=== PATIENT | male | born 1965 | race Caucasian/White ===

== ENCOUNTER 2020-09-17 06:19 | Outpatient (REF) | payer OTHER, SELFPAY ==
[2020-09-17 11:03] LABS: MANUAL DIFF FLAG NO
[2020-09-17 11:07] LABS: Basophils Absolute Auto 0.1 X10*3/uL (0.0-0.2); Eosinophils Absolute Auto 0.2 X10*3/uL (0.0-0.4); Hematocrit 50.3 % (42-52); Hemoglobin 17.3 g/dl (14.0-18.0); Imm Gran Abs Auto 0.02 X10*3/uL (0.00-0.03); Imm Gran Pct Auto 0.3 % (0.0-0.4); Lymphocytes Absolute Auto 1.8 X10*3/uL (1.2-4.9); Lymphocytes Percent Auto 31.1 % (20-40); Mean Corpuscular HGB Conc 34.4 g/dl (31.0-36.0); Mean Corpuscular Hemoglobin 30.5 pg (27.0-33.0); Mean Corpuscular Volume 88.7 fL (80-98); Mean Platelet Volume 10.1 fL (9.4-12.4); Monocytes Absolute Auto 0.5 X10*3/uL (0.1-1.2); Monocytes Percent Auto 9.4 % (2-11); Neutrophils Absolute Auto 3.2 X10*3/uL (2.0-8.3); Neutrophils Percent Auto 55.2 % (45-73); Platelet Count 321 X10*3/uL (160-400); Red Blood Count 5.67 X10*6/uL (4.60-5.80); Red Cell Distribution Width 12.2 % (11.0-16.0); White Blood Count 5.7 X10*3/uL (4.8-10.8)
[2020-09-17 11:58] LABS: Alanine Aminotransferase 44 U/L (0-40); Albumin Level 4.6 g/dL (3.5-5.0); Alkaline Phosphatase 66 U/L (39-117); Anion Gap 16 (12-20); Aspartate Amino Transferase 30 U/L (5-37); Bilirubin Total 1.1 mg/dL (0.0-1.0); Blood Urea Nitrogen 17 mg/dL (9-16); Calcium 9.2 mg/dL (8.4-10.2); Carbon Dioxide 23 mmol/L (22-29); Chloride 107 mmol/L (96-108); Cholesterol 248 mg/dL; Estimated Glomerular Filt Rate > 60; Glucose Fasting 89 mg/dL (60-99); HDL Cholesterol 50 mg/dL; LDL Cholesterol Calculated 178 mg/dl; Potassium 4.2 mmol/L (3.3-5.1); Sodium 142 mmol/L (135-145); Triglycerides 103 mg/dL
== END 2020-09-17 06:20 | disposition home or self-care (01) ==
LOC: HO.HMGCLDS 06:19
PROVIDERS: PCP Internal Medicine Medical Oncology; Visit Provider Internal Medicine Medical Oncology
DX: I10 Essential (primary) hypertension (principal); E78.5 Hyperlipidemia, unspecified; E66.3 Overweight
CPT/HCPCS: 36415; 80053; 80061; 85025

== ENCOUNTER 2020-10-07 08:48 | Outpatient (REF) | payer OTHER, SELFPAY ==
--- NOTE | ~2020-10-07 | US_ITS ---
EXAMINATION: US ABDOMEN COMPLETE CLINICAL INFORMATION: Abdominal pain. COMPARISON: Renal ultrasound 01/16/2015. CT abdomen and pelvis 12/13/2010. Ultrasound abdomen 11/29/2010. TECHNIQUE: Real-time imaging of the abdominal viscera. FINDINGS: PANCREAS: Normal. ABDOMINAL AORTA: The proximal, mid, and distal segments are normal in caliber. INFERIOR VENA CAVA: Visualized portions are normal. LIVER: The liver is normal in size. The liver contour is normal. Parenchymal echogenicity is normal. There is an echogenic lesion right hepatic lobe measuring 0.9 x 0.9 x 0.8 cm, likely hemangioma. There is no intrahepatic biliary duct dilatation seen. GALLBLADDER: Normal. The gallbladder is physiologically distended without evidence of stones, sludge, polyps, wall thickening or pericholecystic fluid. COMMON BILE DUCT: Normal in caliber measuring 0.4 cm in diameter. RIGHT KIDNEY: Normal. No hydronephrosis. No renal calculi or focal parenchymal lesions. The kidney measures 10.8 cm in maximum dimension. LEFT KIDNEY: Normal. No hydronephrosis. No renal calculi or focal parenchymal lesions. The kidney measures 11.2 cm in maximum dimension. SPLEEN: Slightly lobulated splenic contour. The spleen measures 10.9 cm in maximum dimension. Small splenule is seen in the stella measuring 1.7 x 1.8 x 1.9 cm. FREE FLUID: None. US/US abdomen complete IMPRESSION: Right hepatic lobe hemangioma. The rest of the abdominal ultrasound is unremarkable.
== END 2020-10-07 08:49 | disposition home or self-care (01) ==
LOC: HO.US 08:48
PROVIDERS: PCP Internal Medicine Medical Oncology; Visit Provider Internal Medicine Medical Oncology
DX: R10.9 Unspecified abdominal pain (principal)
CPT/HCPCS: 76700

== ENCOUNTER 2020-12-31 07:15 | Outpatient (REF) | payer BC, SELFPAY ==
[2020-12-31 11:45] LABS: MANUAL DIFF FLAG NO
[2020-12-31 12:06] LABS: Basophils Absolute Auto 0.1 X10*3/uL (0.0-0.2); Basophils Percent Auto 0.8 % (0-2); Eosinophils Absolute Auto 0.1 X10*3/uL (0.0-0.4); Hematocrit 48.1 % (42-52); Hemoglobin 16.5 g/dl (14.0-18.0); Imm Gran Abs Auto 0.03 X10*3/uL (0.00-0.03); Imm Gran Pct Auto 0.5 % (0.0-0.4); Lymphocytes Absolute Auto 1.6 X10*3/uL (1.2-4.9); Lymphocytes Percent Auto 26.7 % (20-40); Mean Corpuscular HGB Conc 34.3 g/dl (31.0-36.0); Mean Corpuscular Hemoglobin 30.5 pg (27.0-33.0); Mean Corpuscular Volume 88.9 fL (80-98); Mean Platelet Volume 9.8 fL (9.4-12.4); Monocytes Absolute Auto 0.7 X10*3/uL (0.1-1.2); Monocytes Percent Auto 11.1 % (2-11); Neutrophils Absolute Auto 3.5 X10*3/uL (2.0-8.3); Neutrophils Percent Auto 58.9 % (45-73); Platelet Count 290 X10*3/uL (160-400); Red Blood Count 5.41 X10*6/uL (4.60-5.80); Red Cell Distribution Width 12.5 % (11.0-16.0)
[2020-12-31 12:51] LABS: Alanine Aminotransferase 40 U/L (0-40); Albumin Level 4.4 g/dL (3.5-5.0); Alkaline Phosphatase 58 U/L (39-117); Anion Gap 14 (12-20); Aspartate Amino Transferase 28 U/L (5-37); Bilirubin Total 1.6 mg/dL (0.0-1.0); Blood Urea Nitrogen 22 mg/dL (9-16); Calcium 9.8 mg/dL (8.4-10.2); Carbon Dioxide 25 mmol/L (22-29); Chloride 106 mmol/L (96-108); Cholesterol 232 mg/dL; Estimated Glomerular Filt Rate 58; Glucose Fasting 90 mg/dL (60-99); HDL Cholesterol 54 mg/dL; LDL Cholesterol Calculated 152 mg/dl; Potassium 4.3 mmol/L (3.3-5.1); Sodium 141 mmol/L (135-145); Total Protein 6.8 g/dL (6.5-8.0); Triglycerides 133 mg/dL
== END 2020-12-31 07:16 | disposition home or self-care (01) ==
LOC: HO.HMGCLDS 07:15
PROVIDERS: PCP Internal Medicine Medical Oncology; Visit Provider Internal Medicine Medical Oncology
DX: I10 Essential (primary) hypertension (principal); E78.5 Hyperlipidemia, unspecified; E66.3 Overweight
CPT/HCPCS: 36415; 80053; 80061; 85025

== ENCOUNTER 2021-05-24 07:15 | Outpatient (REF) | payer BC, SELFPAY ==
[2021-05-24 11:27] LABS: MANUAL DIFF FLAG NO
[2021-05-24 11:38] LABS: Basophils Absolute Auto 0.1 X10*3/uL (0.0-0.2); Eosinophils Absolute Auto 0.1 X10*3/uL (0.0-0.4); Eosinophils Percent Auto 2.5 % (0-4); Hematocrit 47.7 % (42-52); Hemoglobin 16.6 g/dl (14.0-18.0); Imm Gran Abs Auto 0.02 X10*3/uL (0.00-0.03); Imm Gran Pct Auto 0.4 % (0.0-0.4); Lymphocytes Absolute Auto 1.6 X10*3/uL (1.2-4.9); Lymphocytes Percent Auto 31.2 % (20-40); Mean Corpuscular HGB Conc 34.8 g/dl (31.0-36.0); Mean Corpuscular Hemoglobin 30.6 pg (27.0-33.0); Mean Platelet Volume 10.1 fL (9.4-12.4); Monocytes Absolute Auto 0.6 X10*3/uL (0.1-1.2); Monocytes Percent Auto 10.9 % (2-11); Neutrophils Absolute Auto 2.8 X10*3/uL (2.0-8.3); Platelet Count 314 X10*3/uL (160-400); Red Blood Count 5.42 X10*6/uL (4.60-5.80); Red Cell Distribution Width 12.3 % (11.0-16.0); White Blood Count 5.2 X10*3/uL (4.8-10.8)
[2021-05-24 12:13] LABS: Alanine Aminotransferase 47 U/L (0-40); Albumin Level 4.5 g/dL (3.5-5.0); Alkaline Phosphatase 63 U/L (39-117); Anion Gap 14 (12-20); Aspartate Amino Transferase 30 U/L (5-37); Bilirubin Total 1.3 mg/dL (0.0-1.0); Blood Urea Nitrogen 18 mg/dL (9-16); Calcium 9.7 mg/dL (8.4-10.2); Carbon Dioxide 23 mmol/L (22-29); Chloride 106 mmol/L (96-108); Cholesterol 212 mg/dL; Estimated Glomerular Filt Rate > 60; Glucose Fasting 88 mg/dL (60-99); HDL Cholesterol 43 mg/dL; LDL Cholesterol Calculated 135 mg/dl; Potassium 4.3 mmol/L (3.3-5.1); Sodium 139 mmol/L (135-145); Total Protein 6.9 g/dL (6.5-8.0); Triglycerides 174 mg/dL
== END 2021-05-24 07:16 | disposition home or self-care (01) ==
LOC: HO.HMGCLDS 07:15
PROVIDERS: PCP Internal Medicine Medical Oncology; Visit Provider Internal Medicine Medical Oncology
DX: E78.5 Hyperlipidemia, unspecified (principal); I10 Essential (primary) hypertension
CPT/HCPCS: 36415; 80053; 80061; 85025

== ENCOUNTER 2021-07-22 11:49 | Outpatient (REF) | payer BC, SELFPAY ==
--- NOTE | ~2021-07-22 | XR_ITS ---
EXAMINATION: XR CHEST CLINICAL INFORMATION: Chest pain, hypertension. COMPARISON: Chest radiograph on January 05, 2015 TECHNIQUE: 2 views of the chest were obtained. FINDINGS: The cardiomediastinal and hilar contours are within normal limits. The lungs are clear without focal consolidation, pleural effusion or pneumothorax. XR/XR chest 2V IMPRESSION: No acute process identified.
== END 2021-07-22 11:50 | disposition home or self-care (01) ==
LOC: HO.XRAY 11:49
PROVIDERS: PCP Internal Medicine Medical Oncology; Visit Provider Internal Medicine Medical Oncology
DX: R07.9 Chest pain, unspecified (principal); I10 Essential (primary) hypertension
CPT/HCPCS: 71046

== ENCOUNTER → 2021-07-26 09:42 | Outpatient (REF) | payer BC, SELFPAY ==
--- NOTE | 2021-07-26 09:46 | CA_ITS ---
Acquisition Time: 2021-07-26 11:03:21 Total Exercise Time: 00:07:31 Test Indications: CP Medications: SEE CHART Protocol: SORIN Max HR: 153 BPM 94% of Pred: 162 BPM Max BP: 215/092 mmHG Max Work Load: 9.3 METS Exercise stress test with exercise 7 min 31 sec of Sorin protocol, achieving 9.4 MET, 94% MPHR, with 2/10 heaviness in his chest with tingling in left arm at baseline which did not change during exercise then in recovery he reported heaviness was up to 3/10, with isolated PACs, PVCs and one 4 beat atrial run in recovery, with hypertensive response to exercise with max BP 215/92, without EKG changes meeting criteria for ischemia. In recovery his BP returned to near baseline. Test reviewed with Dr Berrios. Referred By: Jus Rapp Overread By: NICOLE DUPONT
== END ==
LOC: HO.CARD 09:42
PROVIDERS: PCP Internal Medicine Medical Oncology; Visit Provider Internal Medicine Medical Oncology
DX: R07.9 Chest pain, unspecified (principal); I10 Essential (primary) hypertension
CPT/HCPCS: 93017

== ENCOUNTER 2022-09-08 06:11 | Outpatient (REF) | payer OTHER, SELFPAY ==
[2022-09-08 11:22] LABS: MANUAL DIFF FLAG NO
[2022-09-08 11:34] LABS: Basophils Absolute Auto 0.1 X10*3/uL (0.0-0.2); Basophils Percent Auto 1.5 % (0-2); Eosinophils Absolute Auto 0.4 X10*3/uL (0.0-0.4); Eosinophils Percent Auto 6.6 % (0-4); Hematocrit 46.6 % (42.0-52.0); Hemoglobin 16.5 g/dl (14.0-18.0); Imm Gran Abs Auto 0.03 X10*3/uL (0.00-0.03); Imm Gran Pct Auto 0.5 % (0.0-0.4); Lymphocytes Absolute Auto 1.6 X10*3/uL (1.2-4.9); Lymphocytes Percent Auto 26.5 % (20-40); Mean Corpuscular HGB Conc 35.4 g/dl (31.0-36.0); Mean Corpuscular Hemoglobin 30.8 pg (27.0-33.0); Mean Corpuscular Volume 87.1 fL (80.0-98.0); Mean Platelet Volume 10.3 fL (9.4-12.4); Monocytes Absolute Auto 0.5 X10*3/uL (0.1-1.2); Monocytes Percent Auto 8.7 % (2-11); Neutrophils Absolute Auto 3.4 x10*3/uL (2.0-8.3); Neutrophils Percent Auto 56.2 % (45-73); Platelet Count 292 X10*3/uL (160-400); Red Blood Count 5.35 X10*6/uL (4.60-5.80); Red Cell Distribution Width 12.2 % (11.0-16.0); White Blood Count 6.1 X10*3/uL (4.8-10.8)
[2022-09-08 12:18] LABS: Alanine Aminotransferase 37 U/L (0-40); Albumin Level 4.3 g/dL (3.5-5.0); Alkaline Phosphatase 65 U/L (39-117); Anion Gap 14 (12-20); Aspartate Amino Transferase 24 U/L (5-37); Bilirubin Total 1.1 mg/dL (0.0-1.0); Blood Urea Nitrogen 19 mg/dL (9-16); Calcium 9.6 mg/dL (8.4-10.2); Carbon Dioxide 23 mmol/L (22-29); Chloride 110 mmol/L (96-108); Cholesterol 228 mg/dL; Estimated Glomerular Filt Rate > 60; Glucose Fasting 100 mg/dL (60-99); HDL Cholesterol 47 mg/dL; LDL Cholesterol Calculated 152 mg/dl; Potassium 4.1 mmol/L (3.3-5.1); Prostate Specific Antigen 0.31 ng/mL (<0.05-4.0); Sodium 143 mmol/L (135-145); Total Protein 6.5 g/dL (6.5-8.0); Triglycerides 147 mg/dL
== END 2022-09-08 06:12 | disposition home or self-care (01) ==
LOC: HO.HMGCLDS 06:11
PROVIDERS: PCP Internal Medicine Medical Oncology; Visit Provider Internal Medicine Medical Oncology
DX: Z12.5 Encounter for screening for malignant neoplasm of prostate (principal); I10 Essential (primary) hypertension; E78.5 Hyperlipidemia, unspecified; E66.3 Overweight; N40.0 Benign prostatic hyperplasia without lower urinary tract symptoms
CPT/HCPCS: 36415; 80053; 80061; 84153; 85025

== ENCOUNTER 2023-11-15 06:16 | Outpatient (REF) | payer BC, SELFPAY ==
[2023-11-15 10:22] LABS: MANUAL DIFF FLAG NO
[2023-11-15 10:33] LABS: Basophils Absolute Auto 0.1 X10*3/uL (0.0-0.2); Basophils Percent Auto 0.9 % (0-2); Eosinophils Absolute Auto 0.2 X10*3/uL (0.0-0.4); Hematocrit 47.5 % (42.0-52.0); Hemoglobin 16.5 g/dl (14.0-18.0); Imm Gran Abs Auto 0.02 X10*3/uL (0.00-0.03); Imm Gran Pct Auto 0.4 % (0.0-0.4); Lymphocytes Absolute Auto 1.7 X10*3/uL (1.2-4.9); Lymphocytes Percent Auto 30.9 % (20-40); Mean Corpuscular HGB Conc 34.7 g/dl (31.0-36.0); Mean Corpuscular Hemoglobin 30.5 pg (27.0-33.0); Mean Corpuscular Volume 87.8 fL (80.0-98.0); Monocytes Absolute Auto 0.6 X10*3/uL (0.1-1.2); Monocytes Percent Auto 10.4 % (2-11); Neutrophils Percent Auto 53.4 % (45-73); Platelet Count 304 X10*3/uL (160-400); Red Blood Count 5.41 X10*6/uL (4.60-5.80); Red Cell Distribution Width 12.2 % (11.0-16.0); White Blood Count 5.6 X10*3/uL (4.8-10.8)
[2023-11-15 10:52] LABS: Alanine Aminotransferase 30 U/L (0-40); Albumin Level 4.3 g/dL (3.5-5.0); Alkaline Phosphatase 59 U/L (39-117); Anion Gap 12 (12-20); Aspartate Amino Transferase 25 U/L (5-37); Bilirubin Total 1.1 mg/dL (0.0-1.0); Blood Urea Nitrogen 18 mg/dL (9-16); Calcium 9.8 mg/dL (8.4-10.2); Carbon Dioxide 24 mmol/L (22-29); Chloride 108 mmol/L (96-108); Cholesterol 207 mg/dL (<200); Estimated Glomerular Filt Rate > 60; Glucose Fasting 99 mg/dL (60-99); HDL Cholesterol 47 mg/dL (>40); LDL Cholesterol Calculated 140 mg/dL (<100); Potassium 3.8 mmol/L (3.3-5.1); Sodium 140 mmol/L (135-145); Total Protein 6.9 g/dL (6.5-8.0); Triglycerides 102 mg/dL (<150)
[2023-11-15 11:05] LABS: Prostate Specific Antigen 0.29 ng/mL (<0.05-4.0)
== END 2023-11-15 06:17 | disposition home or self-care (01) ==
LOC: HO.HMGCLDS 06:16
PROVIDERS: PCP Internal Medicine Medical Oncology; Visit Provider Internal Medicine Medical Oncology
DX: Z12.5 Encounter for screening for malignant neoplasm of prostate (principal); E78.5 Hyperlipidemia, unspecified; E66.3 Overweight; I10 Essential (primary) hypertension; N40.0 Benign prostatic hyperplasia without lower urinary tract symptoms
CPT/HCPCS: 36415; 80053; 80061; 84153; 85025

== ENCOUNTER 2024-01-16 06:27 | Day surgery (SDC) | payer BC, SELFPAY ==
[2024-01-12 11:45] VITALS: BMI 30.1
--- NOTE | 2024-01-15 09:46 | HO.ANESPROP2 ---
Documented by User: Vanessa Lawson NP 01/15/24 09:46 HPI - Anesthesia Eval Consult details Narrative: 58yo M for Upper Endoscopy and Colonoscopy [facility] Past Medical History Medical History Insomnia GERD (gastroesophageal reflux disease) Depression Surgical History Surgical History Hx of hernia repair H/O colonoscopy Social History Social History (Updated 01/12/24 @ 11:45 by Ann Marie Mcpherson RN) Household Members: Spouse Patient Tobacco Use Status: Former Tobacco user Substance Use Frequency: Occasionally Are you DNR?: No Advance Directives: No Advance Directives Information Provided: Yes Nutrition Risks: No Nutritional Risk Meds Allergies Allergy/AdvReac Type Severity Reaction Status Date / Time No Known Allergies Allergy Verified 01/16/24 07:08 Home Medications ?Medication ?Instructions ?Recorded ?Confirmed ?Last Taken ?Type Lactobacillus acidophilus and 1 cap PO DAILY 01/12/24 01/12/24 Unknown History rhamnosus 15 billion cell capsule (Probiotic) aspirin 81 mg tablet,delayed 81 mg PO DAILY 01/12/24 01/12/24 01/09/24 History release magnesium oxide 400 mg PO DAILY 01/12/24 01/12/24 Unknown History mirtazapine 15 mg tablet 15 mg PO BEDTIME 01/12/24 01/12/24 Unknown History multivitamin 1 tab PO DAILY 01/12/24 01/12/24 Unknown History omeprazole magnesium 20 mg 20 mg PO DAILY 01/12/24 01/12/24 Unknown History tablet,delayed release (Prilosec OTC) Exam Height,Weight and Vital Signs: Height 5 ft 11 in Weight 97.976 kg Assessment and Plan Assessment Anesthesia Assessment: Chart Reviewed Documented by User: Pacheco Garcia MD 01/16/24 07:18 [facility] Past Medical History Medical History Insomnia GERD (gastroesophageal reflux disease) Depression Family History Family history of problems with anesthesia: No Surgical History Surgical History Hx of hernia repair H/O colonoscopy History of Problems with Anesthesia: No Social History Social History (Updated 01/12/24 @ 11:45 by Ann Marie Mcpherson RN) Household Members: Spouse Patient Tobacco Use Status: Former Tobacco user Substance Use Frequency: Occasionally Are you DNR?: No Advance Directives: No Advance Directives Information Provided: Yes Nutrition Risks: No Nutritional Risk Meds Allergies Allergy/AdvReac Type Severity Reaction Status Date / Time No Known Allergies Allergy Verified 01/16/24 07:08 Home Medications ?Medication ?Instructions ?Recorded ?Confirmed ?Last Taken ?Type Lactobacillus acidophilus and 1 cap PO DAILY 01/12/24 01/12/24 Unknown History rhamnosus 15 billion cell capsule (Probiotic) aspirin 81 mg tablet,delayed 81 mg PO DAILY 01/12/24 01/12/24 01/09/24 History release magnesium oxide 400 mg PO DAILY 01/12/24 01/12/24 Unknown History mirtazapine 15 mg tablet 15 mg PO BEDTIME 01/12/24 01/12/24 Unknown History multivitamin 1 tab PO DAILY 01/12/24 01/12/24 Unknown History omeprazole magnesium 20 mg 20 mg PO DAILY 01/12/24 01/12/24 Unknown History tablet,delayed release (Prilosec OTC) Exam Airway Mallampati Class: II TM Dist: >3cm Neck ROM: Full Loose/Missing/Broken Teeth: No Heart: ok Lungs: ok Assessment and Plan Assessment Anesthesia Assessment: Anesthesia Plan Discussed Final Anesthetic Review Family History of Problems with Anesthesia: No History of Problems with Anesthesia: No NPO: Yes ASA Class: II Final Preanesthetic Review: No Changes in Pt Med Stat, Meds/Allgs Chart Reviewed, Consent Obtained/Reviewed and Anes Risks/Benef Reviewed Patient Risk: Low Procedure Risk: Low Anesthetic Plan Anesthetic Plan: Agree w/ Assess. and Plan and TIVA Disposition: Standard PACU
[2024-01-16 06:38] VITALS: BMI 29.4
[2024-01-16] MEDS: Lactated Ringers 1,000 ML 100 ML IVCONT (06:43)
[2024-01-16 07:07] VITALS: BP 148/90; PULSE 62; RESP 18; TEMP 36.8; O2SAT 96
--- NOTE | 2024-01-16 07:26 | MHC.SHP ---
Pre-Procedural Eval Section A - 24 Hr Update-Section A only Date of Service: 01/16/24 Section B - Complete if H&P > 30 days Chief Complaint: gerd,screening Details of Present Illness: see H&P no changes Relevant Family History (Specify if Yes): No Relevant Social History: None Present Medications: see Short Stay Collaborative assessment Medical History: No relevant PMH History of Previous Operations: No relevant previous surgery Allergies: Allergies Allergy/AdvReac Type Severity Reaction Status Date / Time No Known Allergies Allergy Verified 01/16/24 07:08 Review of Systems Sugical H&P ROS: Negative: Constitution, Cardiovascular, Respiratory, Neurological, Psychiatric, Hem-Onc, Allergic/Immunologic, Gastrointestinal, Genitourinary, Musculoskeletal, Integumentary, Endocrine and Eyes/Ears/Nose/Throat Exam Surgical H&P Exam: Normal: HEENT, Normal: Heart, Normal: Lungs, Normal: Extremities, Normal: Abdomen, Normal: Skin and Normal: Neurological Plan Diagnosis/Plan: Unchanged I have reviewed the history and physical and performed a pertinent physical examination on my patient. No changes have occurred unless specified. Time Spent With Patient Time: Total time managing care of this patient today ____ minutes.
[2024-01-16 08:16] VITALS: BP 109/77; PULSE 60; RESP 14; TEMP 36.6; O2SAT 94
[2024-01-16 08:31] VITALS: BP 118/78; PULSE 50; RESP 15; O2SAT 93
[2024-01-16 08:46] VITALS: BP 145/95; PULSE 53; RESP 16; TEMP 36.6; O2SAT 96
--- NOTE | 2024-01-16 09:04 | OP_ITS ---
DATE OF SERVICE: 01/16/2024 SURGEON: Jamal Mukherjee MD INDICATIONS: 1. Gastroesophageal reflux disease. 2. Colon cancer screening. PREOPERATIVE DIAGNOSIS: POSTOPERATIVE DIAGNOSIS: PROCEDURE PERFORMED: Upper endoscopy with biopsy, colonoscopy to the terminal ileum with snare polypectomy and biopsy. ESTIMATED BLOOD LOSS: COMPLICATIONS: ANESTHESIA: Monitored anesthesia care. ASSISTANTS: SPECIMENS: DESCRIPTION OF PROCEDURE: A history and physical was performed. The risks and benefits of the procedure were explained to the patient. Informed consent was obtained. The patient was placed in the left lateral decubitus position. The Olympus video gastroscope was introduced into the esophagus, stomach, and duodenum. Examination was performed. The scope was removed. He was repositioned for colonoscopy. A digital rectal exam was performed and was found to be normal. The Olympus pediatric video colonoscope was introduced into the rectum and advanced to the cecum. The cecum was identified by transillumination, palpation, and identification of ileocecal valve. Examination was performed. The scope was removed. He tolerated both procedures well, returned to recovery area in stable condition. FINDINGS: Upper endoscopy: 1. Esophagus: The esophagus was normal. There was no esophagitis. Biopsies were obtained from the EG junction. 2. Stomach: The stomach showed several benign-appearing less than 10 mm polyps in the body and fundus consistent with fundic gland polyps. Two of these were biopsied. Antral biopsies were also obtained to evaluate for H pylori. 3. Duodenum: The bulb and 2nd portion were normal. Colonoscopy: The terminal ileum was examined and appeared normal. The visualized colonic mucosa was normal. The quality of the prep was good. Two polyps were identified and removed. The first measured approximately 6 mm and was removed with a cold snare. This has been treated at 60 cm from the anal verge. The second was located at 25 cm and measured less than 5 mm. This was removed with a biopsy forceps. There was mild right-sided diverticulosis. Retroflexed examination showed small internal hemorrhoids. IMPRESSION: 1. Gastroesophageal reflux disease. 2. Gastric polyps. 3. Colon polyps. RECOMMENDATION: Follow up the biopsy results. MD JENNIFER Dexter/MICHAELLEL / [id number]
== END 2024-01-16 09:05 | disposition home or self-care (01) ==
PROVIDERS: PCP Internal Medicine Medical Oncology; Visit Provider Internal Medicine Gastroenterology
PROC: (CPT 45385; principal; 2024-01-16 07:30)
DX: Z12.11 Encounter for screening for malignant neoplasm of colon (principal); Z86.010 Personal history of colon polyps; Z80.0 Family history of malignant neoplasm of digestive organs; D12.4 Benign neoplasm of descending colon; D12.5 Benign neoplasm of sigmoid colon; K21.9 Gastro-esophageal reflux disease without esophagitis; K31.7 Polyp of stomach and duodenum; F32.A Depression, unspecified; G47.00 Insomnia, unspecified; Z79.899 Other long term (current) drug therapy; Z79.82 Long term (current) use of aspirin; Z98.890 Other specified postprocedural states
CPT/HCPCS: 45385; 45380; 43239; 88305; 88313; 88342; J2250; J2704

== ENCOUNTER → 2024-12-30 15:46 | Outpatient (REF) | payer BC, SELFPAY ==
--- NOTE | 2024-12-30 15:51 | ECG_ITS ---
Test Reason : CP Blood Pressure : */* mmHG Vent. Rate : 66 BPM Atrial Rate : 66 BPM P-R Int : 204 ms QRS Dur : 100 ms QT Int : 422 ms P-R-T Axes : 54 3 31 degrees QTcB Int : 442 ms Normal sinus rhythm mild MA prolongation Otherwise normal ECG When compared with ECG of 11-Apr-2005 08:09, No significant change was found Referred By: Jus Rapp Electronically Signed By: ANGI GARCIA
--- OUTSIDE RECORDS SUMMARY | 2024-12-30 16:53 | XMS_ITS ---
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 Phone Jus Rapp Primary Care Provider [phone] Allergies Allergen (clinical drug ingredient) Drug/Non Drug [...] Date Provider Diagnosis Jus Rapp III, MD [address] [place] [address] [place] [address] 07/22/2024 Jus Rapp Former smoker Z87.89 1 [...] check-up Provider Name:Jus Rapp, 04/01/2025 03:00:00 PM, [address] [place] [address] [address], [place], [address], Provider Name:Jus Rapp, 12/31/2025 03:00:00 PM, [address] [place] [address] [address], [place], [address], Progress Notes * Kristin MCKENZIE:1965 ([age] yo M)Acc No.[id number]:07/22/2024 Progress Notes Patient:?David MCKENZIE Provider:?Jus Rapp MD :1965???Age:59 Y???Sex:Male Ajit e:07/22/2024 Address:[id number] Subjective: * Chief Complaints: * ???HypertensionDepressionHyp erlipidemiaBenign prostatic hypertrophyTendon contracture left hand * HPI: ???COVID-19 Screening:?Questions?Have you had any new onset fever, chills, cough, congestion, sore throat, shortness of breath, muscle aches??No ???:? The patient, a 59-year-old male, reported that [...] run a mile and a half. * ROS:?General/Constitutional:?pain?Knees, otherwise only normal aches and pains.?Chills?denies.?Fatigue?admits.?Fever?denies.?ENT:?Decreased hearing?denies.?Respiratory:?Cough?denies.?Cardiovascular:?Chest pain with exertion?denies.?Dyspnea on exertion?denies.?Shortness of breath?denies.?Gastrointestinal:?Constipation?occasional.?Decreased appetite?due to abdominal pain.?Diarrhea?denies.?Heartburn?denies.?Nausea?denies.?Rectal bleeding?denies.?Vomiting?denies.?Hematology:?bruising?denies.?petechiae?denies.?Swollen glands?none have been noted.?Genitourinary:?Frequent urination?once a night.?Musculoskeletal:?Muscle aches?denies.?Painful joints?denies.?Sciatica?denies.?Weakness?denies.?Skin:?Itching?denies.?Rash?denies.?Skin lesion(s)?denies.?Neurologic:?Difficulty speaking?denies.?Dizziness?denies.?Headache?denies.?Low back pain?denies.?Psychiatric:?Depressed mood?denies.? * Medical History:? * Surgical History:?colonoscop y 2002No history * Hospitalization/Major Diagno stic Procedure:?No history * Family History:?Father: dece ased 72 yrs, colon cancer, lung cancer, hypertension, hyperlipidemia, diagnosed with Hyperlipidemia, Cancer.?Mother: 52 yrs, breast cancer, diagnosed with Cancer.?Siblings: .?2 brother(s) , 2 sister(s) . 1 son(s) , 1 daughter(s) - healthy. .? A sister age 53 of cirrhosis of the liver. His father had a history of colon cancer. * Social History:?Tobacco Use:?Tobacco Use/Smoking?Patient is a?former smoker ?How long has it been since you last smoked??> 10 years ?Additional Findings: Tobacco Non-User?Ex-cigarette smoker ???He was born in [place], [place]. He is to Zenobia and they have several children. He is no longer working at [employer] in [employer]. * Medications:?TakingRemeron 1 5 MG Tablet 1 tablet before bedtime in [...] reviewed and reconciled with the patient * Allergies:?No Known Drug All ergyno[Allergies Verified] Objective: * Vitals:?Ht: 72, Wt: 214, BMI :29.02, BP: 138/80, HR: 66, Temp: 97.3, Wt-k.07. * Examination: ???General Examination: ?GENERAL APPEARANCE:?pleasant, well nourished, well developed, in no acute distress, calm and relaxed, overweight, man.?HEAD:?atraumatic, normocephalic.?EYES:?eomi, perrla, anicteric, conjugate.?EARS:?normal.?NOSE:?septum intact.?ORAL CAVITY:?normal, unremarkable.?NECK/THYROID:?no jugular venous distention, no carotid bruit, thyroid normal.?LYMPH NODES:?no enlarged lymph nodes,spleen normal.?SKIN:?no suspicious lesions, anicteric.?HEART:?no clicks, gallops, murmurs, or rubs, regular rhythm, S1, S2 normal, no s3, or vascular bruits.?LUNGS:?clear to auscultation .?BREASTS:??no masses palpable bilaterally.?ABDOMEN:?bowel sounds normal, no ascites, no organomegaly, no mass, overweight.?RECTAL EXAM:?not examined.?MUSCULOSKELETAL:?extremities unremarkable, no clubbing, cyanosis or edema,, Mild Dupuytren's contracture both hands.?PERIPHERAL PULSES:?normal.?NEUROLOGIC:?alert and oriented, cranial nerves 2-12 grossly intact, deep tendon reflexes 2+ symmetrical, motor strength normal upper and lower extremities, sensory exam intact.?PSYCH:?alert, oriented.? Assessment: * Assessment: 1.?Essential hypertension - I10 (Primary)???Notes :His blood pressure is controlled and no change in his regimen as needed.???2.?Former smoker - Z87.891???Notes :He is highly motivated not to smoke. He has a plan for prevention of relapse in times of worsening depression or illness.???3.?Overweight - E66.3???Notes :He has lost 3 pounds. His body mass index is 29. We discussed a weight reduction strategy in detail today.???4.?Right knee pain - M25.561???Notes :He reports that the right knee pain has resolved. He has an ccasional twinge but is walking without difficulty.???5.?Hyperlipidemia - E78.5???Notes :His cholesterol has been controlled in the past. A fasting lipid profile will be done prior to his next visit. No channge in his medications was needed.??? Plan: * Treatment: * Procedure Codes:? * Preventive Medicine:? ??Counseling:?Care goal follow-up plan:?Counseling for abnormal BMI given?Yes ?Above Normal BMI Follow-up?Dietary management education, guidance, and counseling, Dietary needs education, Exercise promotion: strength training, Exercise promotion: stretching, Feeding regime, Giving encouragement to exercise, Lifestyle education regarding diet, Nutrition / feeding management, Nutrition therapy, Prescribed activity/exercise education, Prescribed diet education, Prescribed dietary intake, Special diet education, Weight monitoring , Intervention, Order not done: Medical or Other reason not done ?Smoking/Tobacco Use?Patient counseled on the dangers of tobacco use and urged to quit.?07/22/2024 * Follow Up:?[facility] * Images: * Sign off status: Completed true * Provider:?Jus Rapp MD Date:?07/01 Generated for Garret maurer/Rachna/Breesmitting on:?12/30/2024 04:53 PM EDT History and Physical Notes * HPI [...]
== END ==
LOC: HO.CARD 15:46
PROVIDERS: PCP Internal Medicine Medical Oncology; Visit Provider Internal Medicine Medical Oncology
DX: R07.2 Precordial pain (principal); R07.9 Chest pain, unspecified
CPT/HCPCS: 93005

== ENCOUNTER → 2024-12-30 15:51 | Outpatient (BNV) | payer BC, SELFPAY | PROVIDERS: PCP Internal Medicine Medical Oncology; Visit Provider Internal Medicine | DX: R07.9 Chest pain, unspecified (principal) | CPT/HCPCS: 93010 ==

== ENCOUNTER → 2025-02-13 07:50 | Outpatient (REF) | payer BC, SELFPAY ==
--- OUTSIDE RECORDS SUMMARY | 2024-01-16 03:30 | XMS_ITS ---
Author Organization [facility] Address [address] [place] [address] Care Team Providers Care Delivery Mgr Name Role Phone Jus Rapp MD Primary Care Provider UnavailJamal Page Jr REASON FOR VISIT screening,gerd Problems Problem Type SNOMED Code ICD Code Onset Dates Problem Status W/U Status Risk Notes Problem Benign neoplasm of stomach (55259187) Gastric polyps (K31.7) Active confirmed Problem Gastroesophageal reflux disease (disorder) (000192099) Chronic GERD (K21.9) Active confirmed Encounters Encounter Location Date Provider Diagnosis [facility] [place] Outpatient [address] [place] [phone] 01/16/2024 Jamal Mukherjee Jr Chronic GERD K21.9 ; Encounter for screening colonoscopy Z12.11 ; Colon polyps K63.5 and Gastric polyps K31.7 Assessments Encounter Date Diagnosis (ICD Code) Assessment Notes Treatment Notes Treatment Clinical Notes Section Notes 01/16/2024 Chronic GERD (ICD-10 - K21.9) 01/16/2024 Encounter for screening colonoscopy (ICD-10 - Z12.11) 01/16/2024 Colon polyps (ICD-10 - K63.5) 01/16/2024 Gastric polyps (ICD-10 - K31.7) Plan Of Treatment No Information Progress Notes * ANETA MCKENZIEDOB:1965 ([age] yo M)Acc No.[id number]:01/16/2024 EGD and COL/MAC Patient: ANETA KIRKPATRCIK Provider: Linda Mukherjee MD :1965 A ge:58 Y S ex:Male Date:01/16/2024 Address: [place], [id number] Pcp:Jus Rapp MD Subjective: * Chief Complaints: * 1 . Screening,gerd. * Medical History: Objective: * Vitals: Assessment: * Assessment: 1. C hronic GERD - K21.9 (Primary) 2 . E ncounter for screening colonoscopy - Z12.11 3 . C olon polyps - K63.5 4 . G astric polyps - K31.7 Plan: * Treatment: * Procedure Codes: 4 5385 LESION REMOVAL COLONOSCOPY, 00912 COLONOSCOPY AND BIOPSY, Modifiers: 59 * * The named appointment provid er may or may not be the originator of this progress note, and it is not deemed complete until electronically signed by the appointment provider. Sign off status: Pending * Provider: Linda Mukherjee MD Date: 0 01/16/2024 Generated for Garret maurer/Rachna/Carolinaitting on: 0 02/13/2025 07:52 AM EDT
--- OUTSIDE RECORDS SUMMARY | 2024-07-22 11:00 | XMS_ITS ---
Author Organization Jus Rapp III, MD Address [address] [place] [address] [place] [address] Care Team Providers Care Field Interviewer Name Role Phone Jus Rapp Primary Care Provider Allergies Allergen (clinical drug [...] Date Provider Diagnosis Jus Rapp III, MD [address] [place] [address] [address] [place] [address] 07/22/2024 Jus Rapp Former smoker Z87.89 1 [...] October, Reason: Re gular check-up Provider Name:Jus Rapp, 04/01/2025 03:00:00 PM, [address] [place] [address] [address], [place], [address], Provider Name:Jus Rapp, 12/31/2025 03:00:00 PM, [address] [place] [address] [address], [place], [address], Progress Notes * Kristin MCKENZIE:1965 ([age] yo M)Acc No.[id number]:07/22/2024 Progress Notes Patient: David KIRKPATRICK Provider: Brendon Rapp MD :1965 A ge:59 Y S ex:Male Date:07/22/2024 Address: [id number] Subjective: * Chief Complaints: * H ypertensionDepressionHyperlipidemiaBenign [...] T obacco Use: T obacco Use/Smoking P atysabel is a f ormer smoker H ow long has it been since you last smoked??> 10 years A dditional Findings: Tobacco Non-User E x-cigarette smoker Jaylan salas was born in [place], [place]. He is to Zenobia and they have several children. He is no longer working at [employer] in [employer]. * Medications: T akingRemeron 15 MG Tablet [...] Brendon Rapp MD Date: 09/22/2023 Generated for Helderi erasto/Rachna/eTransmitting on: 0 02/13/2025 07:52 AM EDT History and Physical Notes * HPI (History [...]
--- NOTE | 2025-02-13 07:53 | CA_ITS ---
Acquisition Time: 2025-02-13 07:57:23 Total Exercise Time: 00:09:29 Test Indications: CP Medications: SEE H&P Protocol: SORIN Max HR: 137 BPM 86% of Pred: 159 BPM Max BP: 190/80 mmHG Max Work Load: 10.8 METS Exercise stress test with exercise 9 mins 29 secs of Sorin Protocol, achieving 86% MPHR, with reports of SOB, no chest pain, with isolated PVCs, with normotensive response to exercise. Without any EKG changes meeting criteria for ischemia. In recovery, breathing returned to baseline. Test reviewed with Dr. Ayon. Referred By: Jus Rapp Electronically Signed By: Abhishek Peters
== END ==
LOC: HO.CARD 07:50
PROVIDERS: PCP Internal Medicine Medical Oncology; Visit Provider Internal Medicine Medical Oncology
DX: R07.2 Precordial pain (principal)
CPT/HCPCS: 93017

== ENCOUNTER → 2025-02-13 07:53 | Outpatient (BNV) | payer BC, SELFPAY | PROVIDERS: PCP Internal Medicine Medical Oncology | DX: R06.02 Shortness of breath (principal); I49.3 Ventricular premature depolarization | CPT/HCPCS: 93016; 93018 ==

== ENCOUNTER 2025-07-23 07:50 | Outpatient (REF) | payer BC, SELFPAY ==
--- OUTSIDE RECORDS SUMMARY | 2024-01-24 10:30 | XMS_ITS ---
Author Organization Jus Rapp III, MD Address [address] [place] [address] [place] [id number] Care Team Providers Care Outreach Worker Name Role Phone Dr. Jus Rapp III Primary Care Provider [phone] Allergies Allergen (clinical drug ingredient) Drug/Non Drug Allergy documented on EMR Reaction Allergy Type Onset Date Status No Known Drug Allergy Unknown Drug Allergy Active REASON FOR VISIT Depression, Right knee pain, Hypertension, Dupytrens contracture, Benign prostatic hypertrophy, Hyperlipidemia Medications Medication SIG (Take, Route, Fr equency, Duration) Notes Start Date End Date Status Aspirin 81 81 MG 1 tablet Orally Once a day Active Remeron 15 MG 1 tablet before bedt ольга in the evening Orally Once a day Active Omeprazole 20 MG 1 capsule 30 minutes before morning meal Orally Once a day Active Social History Tobacco Use: Social History Observation Description Date Details (start date - stop date) Former Smoker NA - NA Sex Assigned At : Social History Observation Description Sex Assigned At Male Tobacco Use/Smoking Question Answer Notes Patient is a former smoker How long has it been since you last smoked? > 10 years Additional Findings: Tobacco Non-User Ex-cigaret te smoker Vital Signs Temperature 98.2 degrees Fahrenheit 01/24/20 24 Blood pressure systolic 138 mm Hg 01/24/20 24 Blood pressure diastolic 72 mm Hg 024 Heart Rate 57 /min 01/24/2024 Height 72 in 01/24/2024 Weight 215 lbs 01/24/2024 BMI 29.16 kg/m2 01/24/2024 Encounters Encounter Location Date Provider Diagnosis Jus Rapp III, MD [address] [place] [address] DR [place], [place] [id number] 01/24/2024 Jus Rapp Depression F32.9 ; R ight knee pain M25.561 ; Hyperlipidemia E78.5 ; Former smoker Z87.891 ; Overweight E66.3 ; BPH (benign prostatic hyperplasia) N40.0 and Dupuytren's contracture of left hand M72.0 Assessments Encounter Date Diagnosis (ICD Code) Assessment Notes Treat ment Notes Treatment Clinical Notes 01/24/2024 Depression (ICD-10 - F32.9) He is not feeling depressed and his anxiety is much improved. He says he feels under much less stress now that he is no longer working at that company. 01/24/2024 Right knee pain (ICD-10 - M25.561) He reports that the right knee pain has resolved 01/24/2024 Hyperlipidemia (ICD-10 - E78.5) His cholesterol has been controlled in the past. A fasting lipid profile will be done prior to his next visit. No channge in his medications was needed. 01/24/2024 Former smoker (ICD-1 0 - Z87.891) He is highly motivated not to smoke. He has a plan for prevention of relapse in times of worsening depression or illness. 01/24/2024 Overweight (ICD-10 - E66.3) He has gained 4 pounds. His body mass index is 29. We discussed a weight reduction strategy in detail today. 01/24/2024 BPH (benign prostati c hyperplasia) (ICD-10 - N40.0) He rises from sleep once or twice a night to urinate. We discussed lifestyle modification as way to reduce nocturia. 01/24/2024 Dupuytren's contracture of left hand (ICD-10 - M72.0) There has been no change in this problem and it bothers him very little. Plan Of Treatment Medication Medication Name Sig Start Date Stop Date Notes Aspirin 81 81 MG 1 tablet Orally Once a day Remeron 15 MG 1 tablet before bedt ольга in the evening Orally Once a day Omeprazole 20 MG 1 capsule 30 minutes before morning meal Orally Once a day Next Appt Details Follow Up: 4 Months, Reason: Office visit Provider Name:Jus Rapp , 08/01/2025 03:15:00 PM, [address] [facility] [address], [place], [address], Provider Name:Jus Rapp , 12/31/2025 03:00:00 PM, [address] [facility] [address], [place], [id number], Progress Notes * David MCKENZIEDOB:1965 ([age] yo M)Acc No.[id number]:01/24/2024 Progress Notes Patient: David Padilla Provider: Brendon Rapp MD :1965 A ge:58 Y S ex:Male Date:01/24/2024 Address:[address] [place], [place] [id number] Subjective: * Chief Complaints: * D epressionRight knee painHypertensionDupytrens contractureBenign prostatic hypertrophyHyperlipidemia * HPI: C OVID-19 Screening: .He returns for management of several issues. He continues to rise from sleep once a night to urinate and is experiencing a slow stream and frequency. The pain in his right knee has resolved. He has lost 4pounds. He is able to walk without difficulty. His blood pressure was well controlled today. He is not smoking. His depression is minimal. He continues to work full-time without difficulty. Questions H ave you experienced fever, chills, cough, sore throat, shortness of breath, difficulty breathing, muscle aches, loss of taste or smell? N o H ave you been exposed to the virus within the last 10 days? N o H ave you travelled internationally in the last 10 days? N o H ave you been exposed to COVID-19 in the past? Y es * ROS: G eneral/Constitutional: pain o nly normal aches and pains. C hills d enies.?Fatigue a dmits. F ever d enies. E NT: Decreased hearing d enies. R espiratory: Cough d enies. C ardiovascular: Chest pain with exertion d enies. D yspnea on exertion?denies. S hortness of breath d enies. G astrointestinal: Constipation o ccasional. D ecreased appetite d enies. D iarrhea d enies. H eartburn d enies. N ausea d enies. R ectal bleeding d enies. V omiting d enies. H ematology: bruising d enies. p etechiae d enies. S wollen glands n one have been noted. G enitourinary: Frequent urination o nce a night. M usculoskeletal: Muscle aches d enies. P ainful joints d enies. S ciatica d enies. W eakness d enies. S kin: Itching d enies. R eleno d enies. S kin lesion(s)?denies. N eurologic: Difficulty speaking d enies. D izziness d enies.?Headache d enies. L ow back pain d enies. P sychiatric: Depressed mood d enies. * Medical History: * Surgical History: c olonoscopy 2002 * Hospitalization/Major Diagno stic Procedure: D enies Past Hospitalization * Family History: F ather: 72 yrs, colon cancer, lung cancer, hypertension, hyperlipidemia, diagnosed with Hyperlipidemia, Cancer. M other: 52 yrs, breast cancer, diagnosed with Cancer. 2 brother(s) , 2 sister(s) . 1 son(s) , 1 daughter(s) - healthy. . A sister age 53 of cirrhosis of the liver. His father had a history of colon cancer. * Social History: T obacco Use: T obacco Use/Smoking P atient is a f ormer smoker H ow long has it been since you last smoked??> 10 years A dditional Findings: Tobacco Non-User E x-cigarette smoker Jaylan salas was born in [place], [place]. He is to Zenobia and they have several children. He is no longer working at [employer] in [employer]. * Medications: T akingRemeron 15 MG Tablet 1 tablet before bedtime in the evening Orally Once a dayOmeprazole 20 MG Capsule Delayed Release 1 capsule 30 minutes before morning meal Orally Once a dayAspirin 81 81 MG Tablet Chewable 1 tablet Orally Once a dayMedication List reviewed and reconciled with the patientTaking Remeron 15 MG Tablet 1 tablet before bedtime in the evening Orally Once a dayTaking Omeprazole 20 MG Capsule Delayed Release 1 capsule 30 minutes before morning meal Orally Once a dayTaking Aspirin 81 81 MG Tablet Chewable 1 tablet Orally Once a dayMedication List reviewed and reconciled with the patient * Allergies: N o Known Drug Allergyno[Allergies Verified] Objective: * Vitals: H t: 72, Wt: 215, BMI:29.16, BP: 138/72, HR: 57, Temp: 98.2, Wt-k.52. * P ast Orders: Lab:Prostate Specific Antige n * Order Date 11/15/2023 09/08/2022 Prostate Specific Antigen 0.29 (Ref Range: <0.05-4.0 ng/mL) 0.31 (Ref Range: <0.05-4.0 ng/mL) * Lab:Lipid Panel * Order Date 11/15/2023 09/08/2022 05/24/2021 Triglycerides 102 (Ref Range: <150 mg/dL) 147 (Ref Range: mg/dL) 174 (Ref Range: mg/dL) Cholesterol 207 H (Ref Range: <200 mg/dL) 228 (Ref Range: mg/dL) 212 (Ref Range: mg/dL) LDL Cholesterol Calculated 140 H (Ref Range: <100 mg/dL) 152 (Ref Range: mg/dl) 135 (Ref Range: mg/dl) HDL Cholesterol 47 (Ref Range: >40 mg/dL) 47 (Ref Range: mg/dL) 43 (Ref Range: mg/dL) * Lab:Comprehensive Barney. Pane l Fast * Order Date 11/15/2023 09/08/2022 05/24/2021 Sodium 140 (Ref Range: 135-145 mmol/L) 143 (Ref Range: 135-145 mmol/L) 139 (Ref Range: 135-145 mmol/L) Bilirubin Total 1.1 H (Ref Range: 0.0-1.0 mg/dL) 1.1 H (Ref Range: 0.0-1.0 mg/dL) 1.3 H (Ref Range: 0.0-1.0 mg/dL) Aspartate Amino Transferase 25 (Ref Range: 5-37 U/L) 24 (Ref Range: 5-37 U/L) 30 (Ref Range: 5-37 U/L) Alanine Aminotransferase 30 (Ref Range: 0-40 U/L) 37 (Ref Range: 0-40 U/L) 47 H (Ref Range: 0-40 U/L) Total Protein 6.9 (Ref Range: 6.5-8.0 g/dL) 6.5 (Ref Range: 6.5-8.0 g/dL) 6.9 (Ref Range: 6.5-8.0 g/dL) Albumin Level 4.3 (Ref Range: 3.5-5.0 g/dL) 4.3 (Ref Range: 3.5-5.0 g/dL) 4.5 (Ref Range: 3.5-5.0 g/dL) Alkaline Phosphatase 59 (Ref Range: 39-117 U/L) 65 (Ref Range: 39-117 U/L) 63 (Ref Range: 39-117 U/L) Potassium 3.8 (Ref Range: 3.3-5.1 mmol/L) 4.1 (Ref Range: 3.3-5.1 mmol/L) 4.3 (Ref Range: 3.3-5.1 mmol/L) Chloride 108 (Ref Range: 96-108 mmol/L) 110 H (Ref Range: 96-108 mmol/L) 106 (Ref Range: 96-108 mmol/L) Carbon Dioxide 24 (Ref Range: 22-29 mmol/L) 23 (Ref Range: 22-29 mmol/L) 23 (Ref Range: 22-29 mmol/L) Anion Gap 12 (Ref Range: 12-20) 14 (Ref Range: 12-20) 14 (Ref Range: 12-20) Blood Urea Nitrogen 18 H (Ref Range: 9-16 mg/dL) 19 H (Ref Range: 9-16 mg/dL) 18 H (Ref Range: 9-16 mg/dL) Creatinine 1.06 (Ref Range: 0.5-1.4 mg/dL) 1.05 (Ref Range: 0.5-1.4 mg/dL) 1.12 (Ref Range: 0.5-1.4 mg/dL) Estimated Glomerular Filt Rate > 60 > 60 > 60 Glucose Fasting 99 (Ref Range: 60-99 mg/dL) 100 H (Ref Range: 60-99 mg/dL) 88 (Ref Range: 60-99 mg/dL) Calcium 9.8 (Ref Range: 8.4-10.2 mg/dL) 9.6 (Ref Range: 8.4-10.2 mg/dL) 9.7 (Ref Range: 8.4-10.2 mg/dL) * Lab:Complete Blood Count Aut o Diff * Order Date 11/15/2023 09/08/2022 05/24/2021 White Blood Count 5.6 (Ref Range: 4.8-10.8 X10*3/uL) 6.1 (Ref Range: 4.8-10.8 X10*3/uL) 5.2 (Ref Range: 4.8-10.8 X10*3/uL) Red Blood Count 5.41 (Ref Range: 4.60-5.80 X10*6/uL) 5.35 (Ref Range: 4.60-5.80 X10*6/uL) 5.42 (Ref Range: 4.60-5.80 X10*6/uL) Hemoglobin 16.5 (Ref Range: 14.0-18.0 g/dl) 16.5 (Ref Range: 14.0-18.0 g/dl) 16.6 (Ref Range: 14.0-18.0 g/dl) Hematocrit 47.5 (Ref Range: 42.0-52.0 %) 46.6 (Ref Range: 42.0-52.0 %) 47.7 (Ref Range: 42-52 %) Mean Corpuscular Volume 87.8 (Ref Range: 80.0-98.0 fL) 87.1 (Ref Range: 80.0-98.0 fL) 88.0 (Ref Range: 80-98 fL) Mean Corpuscular Hemoglobin 30.5 (Ref Range: 27.0-33.0 pg) 30.8 (Ref Range: 27.0-33.0 pg) 30.6 (Ref Range: 27.0-33.0 pg) Mean Corpuscular HGB Conc 34.7 (Ref Range: 31.0-36.0 g/dl) 35.4 (Ref Range: 31.0-36.0 g/dl) 34.8 (Ref Range: 31.0-36.0 g/dl) Red Cell Distribution Width 12.2 (Ref Range: 11.0-16.0 %) 12.2 (Ref Range: 11.0-16.0 %) 12.3 (Ref Range: 11.0-16.0 %) Platelet Count 304 (Ref Range: 160-400 X10*3/uL) 292 (Ref Range: 160-400 X10*3/uL) 314 (Ref Range: 160-400 X10*3/uL) Mean Platelet Volume 10.0 (Ref Range: 9.4-12.4 fL) 10.3 (Ref Range: 9.4-12.4 fL) 10.1 (Ref Range: 9.4-12.4 fL) Neutrophils Percent Auto 53.4 (Ref Range: 45-73 %) 56.2 (Ref Range: 45-73 %) 54.0 (Ref Range: 45-73 %) Imm Gran Pct Auto 0.4 (Ref Range: 0.0-0.4 %) 0.5 H (Ref Range: 0.0-0.4 %) 0.4 (Ref Range: 0.0-0.4 %) Lymphocytes Percent Auto 30.9 (Ref Range: 20-40 %) 26.5 (Ref Range: 20-40 %) 31.2 (Ref Range: 20-40 %) Monocytes Percent Auto 10.4 (Ref Range: 2-11 %) 8.7 (Ref Range: 2-11 %) 10.9 (Ref Range: 2-11 %) Eosinophils Percent Auto 4.0 (Ref Range: 0-4 %) 6.6 H (Ref Range: 0-4 %) 2.5 (Ref Range: 0-4 %) Basophils Percent Auto 0.9 (Ref Range: 0-2 %) 1.5 (Ref Range: 0-2 %) 1.0 (Ref Range: 0-2 %) NRBC Pct Auto 0.0 (Ref Range: 0.0-0.2 /100WBC) 0.0 (Ref Range: 0.0-0.2 /100WBC) 0.0 (Ref Range: 0.0-0.2 /100WBC) Neutrophils Absolute Auto 3.0 (Ref Range: 2.0-8.3 x10*3/uL) 3.4 (Ref Range: 2.0-8.3 x10*3/uL) 2.8 (Ref Range: 2.0-8.3 X10*3/uL) Imm Gran Abs Auto 0.02 (Ref Range: 0.00-0.03 X10*3/uL) 0.03 (Ref Range: 0.00-0.03 X10*3/uL) 0.02 (Ref Range: 0.00-0.03 X10*3/uL) Lymphocytes Absolute Auto 1.7 (Ref Range: 1.2-4.9 X10*3/uL) 1.6 (Ref Range: 1.2-4.9 X10*3/uL) 1.6 (Ref Range: 1.2-4.9 X10*3/uL) Monocytes Absolute Auto 0.6 (Ref Range: 0.1-1.2 X10*3/uL) 0.5 (Ref Range: 0.1-1.2 X10*3/uL) 0.6 (Ref Range: 0.1-1.2 X10*3/uL) Eosinophils Absolute Auto 0.2 (Ref Range: 0.0-0.4 X10*3/uL) 0.4 (Ref Range: 0.0-0.4 X10*3/uL) 0.1 (Ref Range: 0.0-0.4 X10*3/uL) Basophils Absolute Auto 0.1 (Ref Range: 0.0-0.2 X10*3/uL) 0.1 (Ref Range: 0.0-0.2 X10*3/uL) 0.1 (Ref Range: 0.0-0.2 X10*3/uL) NRBC Abs Auto 0.000 (Ref Range: 0.0-0.012 X10*3/uL) 0.000 (Ref Range: 0.0-0.012 X10*3/uL) 0.000 (Ref Range: 0.0-0.012 X10*3/uL) ???Lab:Pathology (Order Date - 01/16/2024) (Collection Date - 01/16/2024) * Examination: G eneral Examination: GENERAL APPEARANCE: p leasant, well nourished, well developed, in no acute distress, calm and relaxed , overweight , man. HEAD: a traumatic, normocephalic. EYES: e helena, perrla, anicteric, conjugate. EARS: n ormal. NOSE: s eptum intact. ORAL CAVITY: n ormal, unremarkable. NECK/THYROID: n o jugular venous distention, no carotid bruit, thyroid normal. LYMPH NODES: n o enlarged lymph nodes,spleen normal. SKIN: n o suspicious lesions, anicteric. HEART: n o clicks, gallops, murmurs, or rubs, regular rhythm, S1, S2 normal, no s3, or vascular bruits. LUNGS: c lear to auscultation . BREASTS: no masses palpable bilaterally. ABDOMEN: b owel sounds normal, no ascites, no organomegaly, no mass , overweight. RECTAL EXAM: n ot examined. MUSCULOSKELETAL: e xtremities unremarkable, no clubbing, cyanosis or edema, Tendon contractures both has more prominent on the left, no impairment to use. PERIPHERAL PULSES: n ormal. NEUROLOGIC: a lert and oriented, cranial nerves 2-12 grossly intact, deep tendon reflexes 2+ symmetrical, motor strength normal upper and lower extremities, sensory exam intact. PSYCH: a lert, oriented. Assessment: * Assessment: 1. D epression - F32.9 (Primary), He is not feeling depressed and his anxiety is much improved. He says he feels under much less stress now that he is no longer working at that company. 2 . Right knee pain - M25.561, He reports that the right knee pain has resolved 3 . H yperlipidemia - E78.5, His cholesterol has been controlled in the past. A fasting lipid profile will be done prior to his next visit. No channge in his medications was needed. 4 . F ormer smoker - Z87.891, He is highly motivated not to smoke. He has a plan for prevention of relapse in times of worsening depression or illness. 5 . O verweight - E66.3, He has gained 4 pounds. His body mass index is 29. We discussed a weight reduction strategy in detail today. 6 . B PH (benign prostatic hyperplasia) - N40.0, He rises from sleep once or twice a night to urinate. We discussed lifestyle modification as way to reduce nocturia. 7 . D upuytren's contracture of left hand - M72.0, There has been no change in this problem and it bothers him very little. Plan: * Treatment: * Procedure Codes: * Preventive Medicine: Counseling: C are goal follow-up plan: Counseling for abnormal BMI given Y es Above Normal BMI Follow-up D ietary management education, guidance, and counseling, Dietary needs education, Exercise promotion: strength training, Exercise promotion: stretching, Feeding regime, Giving encouragement to exercise, Lifestyle education regarding diet, Nutrition / feeding management, Nutrition therapy, Prescribed activity/exercise education, Prescribed diet education, Prescribed dietary intake, Special diet education, Weight monitoring , Intervention, Order not done: Medical or Other reason not done * Follow Up: 4 Months (Reason: Office visit) * Images: * Sign off status: Completed true * Provider: Brendon Rapp MD Date: 0 01/24/2024 Generated for Garret maurer/Rachna/María on: 09/23/2024 07:54 AM EST History and Physical Notes * HPI (History of Present Illness) Category Sub-Category Detail Notes COVID-19 Screening Questions Have you had any new onset fever, chills, cough, congestion, sore throat, shortness of breath, muscle aches?: No Have you been exposed to the virus withi n the last 10 days?: No Have you travelled internationally in e last 10 days?: No Have you been exposed to COVID-19 in the past?: Yes Examination Category Sub-Category Detail Notes General Examination GENERAL APPEARANCE: pleasant , well nourished, well developed, in no acute distress, calm and relaxed , overweight , man HEAD: atraumatic, normocep halic EYES: eomi, perrla, anicte marcos, conjugate EARS: normal NOSE: septum intact NECK/THYROID: no jugular venous di stention, no carotid bruit, thyroid normal HEART: no clicks, gallops, murmurs, or rubs, regular rhythm, S1, S2 normal, no s3, or vascular bruits LUNGS: clear to auscultatio n ABDOMEN: bowel sounds normal, no ascites, no organomegaly, no mass , overweight NEUROLOGIC: alert and oriented, cranial nerves 2-12 grossly intact, deep tendon reflexes 2+ symmetrical, motor strength normal upper and lower extremities, sensory exam intact SKIN: no suspicious lesion s, anicteric PERIPHERAL PULSES: normal BREASTS: no masses palpable b ilaterally MUSCULOSKELETAL: extremities unremark able, no clubbing, cyanosis or edema, Tendon contractures both has more prominent on the left, no impairment to use LYMPH NODES: no enlarged lymph no shine,spleen normal RECTAL EXAM: not examined PSYCH: alert, oriented ORAL CAVITY: normal, unremarkable
--- OUTSIDE RECORDS SUMMARY | 2024-05-27 10:15 | XMS_ITS ---
Author Organization Jus Rapp III, MD Address [address] [place] [address] [place] [address] Care Team Providers Care Statue Maker Name Role Phone Dr. 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, Prosthetic hypertrophy Medications Medication SIG (Take, Route, Fr equency, Duration) Notes Start Date End Date Status Aspirin 81 81 MG 1 tablet Orally Once a day Active Omeprazole 20 MG 1 capsule 30 minutes before morning meal Orally Once a day Active Remeron 15 MG 1 tablet before bedt ольга in the evening Orally Once a day Active Social History [...] Non-User Ex-cigaret te smoker Vital Signs Temperature 97.3 degrees Fahrenheit 05/27/20 24 Blood pressure systolic 138 mm Hg 05/27/20 24 Blood pressure diastolic 80 mm Hg 024 Heart Rate 59 /min 05/27/2024 Height 72 in 05/27/2024 Weight 217 lbs 05/27/2024 BMI 29.43 kg/m2 05/27/2024 Encounters Encounter Location Date Provider Diagnosis Jus Rapp III, MD [address] [place] [address] [address] [place] [address] 05/27/2024 Jus Rapp Depression F32.9 ; R ight knee pain M25.561 ; Former smoker Z87.891 ; Overweight E66.3 ; Hyperlipidemia E78.5 and Essential hypertension I10 Assessments Encounter Date Diagnosis (ICD Code) Assessment Notes Treat ment Notes Treatment Clinical Notes 05/27/2024 Depression (ICD-10 - F32.9) He is not feeling depressed and his anxiety is much improved. He says he feels under much less stress now that he is no longer working at that company. 05/27/2024 Right knee pain (ICD-10 - M25.561) He reports that the right knee pain has resolved. He has an ccasional twinge but is walking without difficulty. 05/27/2024 Former smoker (ICD-1 0 - Z87.891) He is highly motivated not to smoke. He has a plan for prevention of relapse in times of worsening depression or illness. 05/27/2024 Overweight (ICD-10 - E66.3) He has gained 4 pounds. His body mass index is 29. We discussed a weight reduction strategy in detail today. 05/27/2024 Hyperlipidemia (ICD-10 - E78.5) His cholesterol has been controlled in the past. A fasting lipid profile will be done prior to his next visit. No channge in his medications was needed. 05/27/2024 Essential hypertension (ICD-10 - I10) His blood pressure is controlled and no change in his regimen as needed. Plan Of Treatment Medication Medication Name Sig Start Date Stop Date Notes Aspirin 81 81 MG 1 tablet Orally Once a day Omeprazole 20 MG 1 capsule 30 minutes before morning meal Orally Once a day Remeron 15 MG 1 tablet before bedt ольга in the evening Orally Once a day Next Appt Details Follow Up: In eight weeks, Brendon samson: To check patient's weight and blood pressure Provider Name:Jus Rapp , 08/01/2025 03:15:00 PM, [address] [place] [address] [address], [place], [address], Provider Name:Jus Rapp , 12/31/2025 03:00:00 PM, [address] [place] [address] [address], [place], [address], Progress Notes * David MCKENZIEDOB:1965 ([age] yo M)Acc No.[id number]:05/27/2024 Progress Notes Patient: David KIRKPATRICK Provider: Brendon Rapp MD :1965 A ge:59 Y S ex:Male Date:05/27/2024 Address:[address] [place], [place] [id number] Subjective: * Chief Complaints: * H ypertensionHistory of depressionTendon contracture of his handProsthetic hypertrophy * HPI: C OVID-19 Screening: Questions H ave you experienced fever, chills, [...] COVID-19 in the past? Y es * : The 59-year-old male patient works at [employer] and has been experiencing some health issues. He has been experiencing some hearing issues, particularly in meetings where he finds it hard to hear people. He has tried using ear wax coach cleaner to clear it up, but it hasn't helped much. He also mentioned that he has been going to the gym and has noticed some irritation and arthritis. He has been lifting weights at the gym. He also mentioned that he has been taking the same three medications and has not had any recent blood tests since October. He has been experiencing high blood pressure, which he monitors using a blood pressure monitor system provided by his workplace. He also mentioned that he has been trying to lose weight but has been struggling to do so. * ROS: G eneral/Constitutional: pain k nees. C hills d enies. F atigue a dmits. F ever d enies. E NT: Decreased hearing d enies. R espiratory: Cough d enies. C ardiovascular: Chest pain with exertion d enies. D yspnea on exertion?denies. S hortness of breath d enies. G astrointestinal: Constipation d enies. D ecreased appetite d enies.?Diarrhea d enies. H eartburn d enies. N ausea d enies. R ectal bleeding?denies. V omiting d enies. H ematology: bruising d enies. p etechiae d enies. S wollen glands n one have been noted. G enitourinary: Frequent urination o nce a night. M usculoskeletal: Muscle aches d enies. P ainful joints R ight knee.?Sciatica d enies. W eakness d enies. S kin: Itching d enies. R eleno d enies. S kin lesion(s)?denies. N eurologic: Difficulty speaking d enies. D izziness d enies.?Headache d enies. L ow back pain d enies. P sychiatric: Depressed mood d enies. * Medical History: * Surgical History: c olonoscopy 2002No history * Hospitalization/Major Diagno stic Procedure: N o history * Family History: F ather: 72 yrs, [...] x-cigarette smoker Jaylan salas was born in [place], [place]. He is to Zenobia and they have several children. He is no longer working at [employer] in [place]. * Medications: T akingRemeron 15 MG Tablet 1 tablet before bedtime in the evening Orally Once a day Omeprazole 20 MG Capsule Delayed Release 1 capsule 30 minutes before morning meal Orally Once a day Aspirin 81 81 MG Tablet Chewable 1 tablet Orally Once a day Medication List reviewed and reconciled with the patientTaking Remeron 15 MG Tablet 1 tablet before bedtime in the evening Orally Once a day Taking Omeprazole 20 MG Capsule Delayed Release 1 capsule 30 minutes before morning meal Orally Once a day Taking Aspirin 81 81 MG Tablet Chewable 1 tablet Orally Once a day Medication List reviewed and reconciled with the patient * Allergies: N o Known Drug Allergyno[Allergies Verified] Objective: * Vitals: H t: 72, Wt: 217, BMI:29.43, BP: 138/80, HR: 59, Temp: 97.3, Wt-k.43. * Examination: G eneral Examination: GENERAL APPEARANCE: p leasant, well nourished, well developed, in no acute distress, calm and relaxed, overweight, man. HEAD: a traumatic, normocephalic. EYES: e [...] sounds normal, no ascites, no organomegaly, no mass. RECTAL EXAM: n ot examined. MUSCULOSKELETAL: e xtremities unremarkable, no clubbing, cyanosis or edema, Normal range of motion right. PERIPHERAL PULSES: n ormal. NEUROLOGIC: a lert and oriented, cranial nerves 2-12 grossly intact, deep tendon reflexes 2+ symmetrical, motor strength normal upper and lower extremities, sensory exam intact. PSYCH: a lert, oriented. Assessment: * Assessment: 1. D epression - F32.9 (Primary) N otes :He is not feeling depressed and his anxiety is much improved. He says he feels under much less stress now that he is no longer working at that company. 2 . R ight knee pain - M25.561 N otes :He reports that the right knee pain has resolved. He has an ccasional twinge but is walking without difficulty. 3 . F ormer smoker - Z87.891 N otes :He is highly motivated not to smoke. He has a plan for prevention of relapse in times of worsening depression or illness. 4 . O verweight - E66.3 N otes :He has gained 4 pounds. His body mass index is 29. We discussed a weight reduction strategy in detail today. 5 . H yperlipidemia - E78.5 N otes :His cholesterol has been controlled in the past. A fasting lipid profile will be done prior to his next visit. No channge in his medications was needed. 6 . E ssential hypertension - I10 N otes :His blood pressure is controlled and no change in his regimen as needed. Plan: * Treatment: * Procedure Codes: * [...] done: Medical or Other reason not done S moking/Tobacco Use Patient counseled on the dangers of tobacco use and urged to quit. 1 * Follow Up: I n eight weeks (Reason: To check patient's weight and blood pressure) * Images: * Sign off status: Completed true * Provider: Brendon Rapp MD Date: Generated for Garret maurer/Rachna/eTransmitting on: 09/23/2024 07:53 AM EST History and Physical Notes * [...] developed, in no acute distress, calm and relaxed, overweight, man HEAD: atraumatic, normocep halic EYES: eomi, perrla, anicte marcos, conjugate EARS: normal NOSE: septum intact NECK/THYROID: no jugular venous di stention, no carotid bruit, thyroid normal HEART: no clicks, gallops, murmurs, or rubs, regular rhythm, S1, S2 normal, no s3, or vascular bruits LUNGS: clear to auscultatio n ABDOMEN: bowel sounds normal, no ascites, no organomegaly, no mass NEUROLOGIC: alert and oriented, cranial nerves 2-12 grossly intact, deep tendon reflexes 2+ symmetrical, motor strength normal upper and lower extremities, sensory exam intact SKIN: no suspicious lesion s, anicteric PERIPHERAL PULSES: normal BREASTS: no masses palpable b ilaterally MUSCULOSKELETAL: extremities unremark able, no clubbing, cyanosis or edema, Normal range of motion right LYMPH NODES: no enlarged lymph no shine,spleen normal RECTAL EXAM: not examined PSYCH: alert, oriented ORAL CAVITY: normal, unremarkable
--- OUTSIDE RECORDS SUMMARY | 2024-07-22 10:00 | XMS_ITS ---
Author Organization Jus Rapp III, MD Address [address] [place] [address] [place] [address] Care Team Providers Care Non Acoustic Operator Name Role Phone Dr. Jus Rapp III Primary Care Provider [phone] Allergies Allergen (clinical drug ingredient) Drug/Non Drug Allergy documented on EMR Reaction Allergy Type Onset Date Status No Known Drug Allergy Unknown Drug Allergy Active REASON FOR VISIT Hypertension, Depression, Hyperlipidemia, Benign prostatic hypertrophy, tendon contracture left hand Medications Medication SIG (Take, Route, Fr equency, Duration) Notes Start Date End Date Status Remeron 15 MG 1 tablet before bedt ольга in the evening Orally Once a day Active Omeprazole 20 MG 1 capsule 30 minutes before morning meal Orally Once a day Active Aspirin 81 81 MG 1 tablet Orally Once a day Active Social History [...] smoker Vital Signs Temperature 97.3 degrees Fahrenheit 07/22/20 24 Blood pressure systolic 138 mm Hg 07/22/20 24 Blood pressure diastolic 80 mm Hg 024 Heart Rate 66 /min 07/22/2024 Height 72 in 07/22/2024 Weight 214 lbs 07/22/2024 BMI 29.02 kg/m2 07/22/2024 Encounters Encounter Location Date Provider Diagnosis Jus Rapp III, MD [address] [place] [address] [address] [place] [address] 07/22/2024 Jus Rapp Former smoker Z87.89 1 ; Essential hypertension I10 ; Overweight E66.3 ; Right knee pain M25.561 and Hyperlipidemia E78.5 Assessments Encounter Date Diagnosis (ICD Code) Assessment Notes Treat ment Notes Treatment Clinical Notes 07/22/2024 Former smoker (ICD-1 0 - Z87.891) He is highly motivated not to smoke. He has a plan for prevention of relapse in times of worsening depression or illness. 07/22/2024 Essential hypertension (ICD-10 - I10) His blood pressure is controlled and no change in his regimen as needed. 07/22/2024 Overweight (ICD-10 - E66.3) He has lost 3 pounds. His body mass index is 29. We discussed a weight reduction strategy in detail today. 07/22/2024 Right knee pain (ICD-10 - M25.561) He reports that the right knee pain has resolved. He has an ccasional twinge but is walking without difficulty. 07/22/2024 Hyperlipidemia (ICD-10 - E78.5) His cholesterol has been controlled in the past. A fasting lipid profile will be done prior to his next visit. No channge in his medications was needed. Plan Of Treatment Medication Medication Name Sig Start Date Stop Date Notes Remeron 15 MG 1 tablet before bedt ольга in the evening Orally Once a day Omeprazole 20 MG 1 capsule 30 minutes before morning meal Orally Once a day Aspirin 81 81 MG 1 tablet Orally Once a day Next Appt Details Follow Up: October, Reason: Re gular check-up Provider Name:Jus Rapp , 08/01/2025 03:15:00 PM, [address] [place] [address] [address], [place], [address], Provider Name:Jus Rapp , 12/31/2025 03:00:00 PM, [address] [place] [address] [address], [place], [address], Progress Notes * Kristin MCKENZIE:1965 ([age] yo M)Acc No.[id number]:07/22/2024 Progress Notes Patient: David KIRKPATRICK Number:[id number] Provider: Brendon Rapp MD :1965 A ge:59 Y S ex:Male Date:07/22/2024 Address: [address] [id number] Subjective: * Chief Complaints: * H ypertensionDepressionHyperlipidemiaBenign prostatic hypertrophyTendon contracture left hand * HPI: C OVID-19 Screening: Questions H ave you had any new onset fever, chills, cough, congestion, sore throat, shortness of breath, muscle aches? N o * : The patient, a 59-year-old male, reported that he had been sick for a while but is now feeling much better. He mentioned that he had a tendon contractor, which is now doing fine. He also reported that he has been getting up at night to urinate, but it's not a major concern as it happens only once a night. He has been taking his medications without any trouble. The patient also mentioned that he has been trying to work on his weight and has managed to lose 3 lbs. He has started running again and has managed to run a mile and a half. * ROS: G eneral/Constitutional: pain K nees, otherwise only normal aches and pains. C hills d enies. F atigue a dmits. F ever d enies. E NT: Decreased hearing d enies. R espiratory: Cough d enies. C ardiovascular: Chest pain with exertion d enies. D yspnea on exertion?denies. S hortness of breath d enies. G astrointestinal: Constipation o ccasional. D ecreased appetite d ue to abdominal pain. D iarrhea d enies. H eartburn d enies. N ausea d enies.?Rectal bleeding d enies. V omiting d enies. [...] Medical History: * Surgical History: c olonoscopy 2003No history * Hospitalization/Major Diagno stic Procedure: N o history * Family History: F ather: 72 yrs, colon cancer, lung cancer, hypertension, hyperlipidemia, diagnosed with Hyperlipidemia, Cancer. M other: 52 yrs, breast cancer, diagnosed with Cancer. S iblings: . 2 brother(s) , 2 sister(s) . 1 [...] dditional Findings: Tobacco Non-User E x-cigarette smoker H maritza was born in [place], [place]. He is to Zen[place] and they have several children. He is no longer working at [employer] in [place]. * Medications: T akingRemeron 15 MG Tablet [...] Objective: * Vitals: H t: 72, Wt: 214, BMI:29.02, BP: 138/80, HR: 66, Temp: 97.3, Wt-k.07. * Examination: G eneral Examination: GENERAL APPEARANCE: [...] sounds normal, no ascites, no organomegaly, no mass, overweight. RECTAL EXAM: n ot examined. MUSCULOSKELETAL: e xtremities unremarkable, no clubbing, cyanosis or edema,, Mild Dupuytren's contracture both hands. PERIPHERAL PULSES: n ormal. NEUROLOGIC: a lert and oriented, cranial nerves 2-12 grossly intact, deep tendon reflexes 2+ symmetrical, motor strength normal upper and lower extremities, sensory exam intact. PSYCH: a lert, oriented. Assessment: * Assessment: 1. E ssential hypertension - I10 (Primary) N otes :His blood pressure is controlled and no change in his regimen as needed. 2 . F ormer smoker - Z87.891 N otes :He is highly motivated not to smoke. He has a plan for prevention of relapse in times of worsening depression or illness. 3 . O verweight - E66.3 N otes :He has lost 3 pounds. His body mass index is 29. We discussed a weight reduction strategy in detail today. 4 . R ight knee pain - M25.561 N otes :He reports that the right knee pain has resolved. He has an ccasional twinge but is walking without difficulty. 5 . H yperlipidemia - E78.5 N otes :His cholesterol has been controlled in the past. A fasting lipid profile will be done prior to his next visit. No channge in his medications was needed. Plan: * Treatment: * Procedure Codes: [...] tobacco use and urged to quit. 1 09/22/2023 * Follow Up: A pril (Reason: Regular check-up) * Images: * Sign off status: Completed true * Provider: Brendon Rapp MD Date: 09/22/2023 Generated for Garret maurer/Rachna/eTransmitting on: 09/23/2024 07:53 AM EST History and Physical Notes * HPI (History of Present Illness) Category Sub-Category Detail Notes COVID-19 Screening Questions Have you had any new onset fever, chills, cough, congestion, sore throat, shortness of breath, muscle aches?: No Examination Category Sub-Category Detail Notes General Examination [...] sounds normal, no ascites, no organomegaly, no mass, overweight NEUROLOGIC: alert and oriented, cranial nerves 2-12 grossly intact, deep tendon reflexes 2+ symmetrical, motor strength normal upper and lower extremities, sensory exam intact SKIN: no suspicious lesion s, anicteric PERIPHERAL PULSES: normal BREASTS: no masses palpable b ilaterally MUSCULOSKELETAL: extremities unremark able, no clubbing, cyanosis or edema,, Mild Dupuytren's contracture both hands LYMPH NODES: no enlarged lymph no shine,spleen normal RECTAL EXAM: not examined PSYCH: alert, oriented ORAL CAVITY: normal, unremarkable
--- OUTSIDE RECORDS SUMMARY | 2024-09-27 12:00 | XMS_ITS ---
Author Organization Jus Rapp III, MD Address [address] [place] [address] [place] [address] Care Team Providers Care Organic Preparation Analyst Name Role Phone Dr. Jus Rapp III Primary Care Provider [phone] REASON FOR VISIT Annual Exam Social History Sex Assigned At : Social History Observation Description Sex Assigned At Male Encounters Encounter Location Date Provider Diagnosis Jus Rapp III, MD [address] [place] [address] [place] [address] 09/27/2024 Jus Rapp Plan Of Treatment Next Appt Details Provider Name:Jus Rapp , 08/01/2025 03:15:00 PM, [address] [place] [address] [place], [address], Provider Name:Jus Rapp , 12/31/2025 03:00:00 PM, [address] [place] [address] [place], [address], Progress Notes * David MCKENZIEDOB:1965 ([age] yo M)Acc No.[id number]:09/27/2024 Progress Notes Patient: David KIRKPATRICK Provider: Brendon Rapp MD :1965 A ge:59 Y S ex:Male Date:09/27/2024 Address: [address] [id number] Subjective: * Chief Complaints: * 1 . Annual Exam. * Medical History: Objective: * Vitals: Assessment: Plan: * Treatment: * Images: * The named appointment provid er may or may not be the originator of this progress note, and it is not deemed complete until electronically signed by the appointment provider. Sign off status: Pending * Provider: Brendon Rapp MD Date: 0 09/27/2024 Generated for Garret maurer/Rachna/María on: 09/23/2024 07:54 AM EST
--- OUTSIDE RECORDS SUMMARY | 2024-12-30 10:00 | XMS_ITS ---
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 Jus Rapp III Primary Care Provider Allergies Allergen (clinical drug ingredient) Drug/Non Drug Allergy documented on EMR Reaction Allergy Type Onset Date Status No Known Drug Allergy Unknown Drug Allergy Active Results Component Value Reference Range Notes URINE DIP STICK Reviewed date:12/30/2024 03:08:44 PM Interpretation: Performing Lab: Notes/Report: SG 1.010 1.005 - 1.025 pH 5.0 5.0 - 9.0 POONAM Negative Negative - NIT Negative Negative - PRO 15 Negative - Trace GLU Negative Negative - KET Negative Negative - UBG 0.2 0.1 - 1.8 LILLIAN Negative 0.2 - 1.3 BLD 5-10 Negative - REASON FOR VISIT Annual Exam Medications Medication SIG (Take, Route, Fr equency, [...] Observation Description Sex Assigned At Male Tobacco Control (Standard) Question Answer Notes Tobacco use: Former smoker How long has it been since you last smoked? Grea ter than 10 years Additional Findings: Tobacco non-user Ex-cigaret te smoker AUDIT-C (Standard) Question Answer Notes Did you have a drink contain ing alcohol in the past year? Yes How often did you have six o r more drinks on one occasion in the past year? 2 to 4 times a month (2 points) How many drinks did you have on a typical day when you were drinking in the past year? 1 or 2 drinks (0 point) How often did you have a dri nk containing alcohol in the past year? Never (0 point) Points 2 Interpretation Negative Problems Problem Type SNOMED Code ICD Code Onset Dates Problem Status W/U Status Risk Notes Problem [id number] Precordial pain (R07.2) Active confirmed I have ordered an EKG and a stress test to evaluate the new onset of chest pain. She will take 81 mg Problem [id number] Right elbow tendinitis (M77.8) Active confirmed He will use heat rest and ibuprofen. If it does not resolve he will be referred to orthopedic s. Vital Signs Temperature 98.2 degrees Fahrenheit 12/31/19 25 Blood pressure systolic 140 mm Hg 12/31/19 25 Blood pressure diastolic 80 mm Hg 025 Heart Rate 63 /min 12/30/2024 Height 72 in 12/30/2024 Weight 214 lbs 12/30/2024 BMI 29.02 kg/m2 12/30/2024 Encounters Encounter Location Date Provider Diagnosis Jus Rapp III, MD [address] [place] [address] [place] [address] 12/30/2024 Jus Rapp Precordial pain R07. 2 ; Right elbow tendinitis M77.8 ; Right knee pain M25.561 ; Depression F32.9 ; Hyperlipidemia E78.5 ; Former smoker Z87.891 ; Overweight E66.3 ; Essential hypertension I10 and Dupuytren's contracture of left hand M72.0 Assessments Encounter Date Diagnosis (ICD Code) Assessment Notes Treat ment Notes Treatment Clinical Notes 12/30/2024 Precordial pain (ICD-10 - R07.2) I have ordered an EKG and a stress test to evaluate the new onset of chest pain. She will take 81 mg 12/30/2024 Right elbow tendinitis (ICD-10 - M77.8) He will use heat rest and ibuprofen. If it does not resolve he will be referred to orthopedics. 12/30/2024 Right knee pain (ICD-10 - M25.561) He reports that the right knee pain has resolved. He has an ccasional twinge but is walking without difficulty. 12/30/2024 Depression (ICD-10 - F32.9) He is not feeling depressed and his anxiety is much improved. He says he feels under much less stress now that he is no longer working at that company. 12/30/2024 Hyperlipidemia (ICD-10 - E78.5) His cholesterol has been controlled in the past. A fasting lipid profile will be done prior to his next visit. No channge in his medications was needed. 12/30/2024 Former smoker (ICD-1 0 - Z87.891) He is highly motivated not to smoke. He has a plan for prevention of relapse in times of worsening depression or illness. 12/30/2024 Overweight (ICD-10 - E66.3) He has lost 3 pounds. His body mass index is 29. We discussed a weight reduction strategy in detail today. 12/30/2024 Essential hypertension (ICD-10 - I10) His blood pressure is controlled and no change in his regimen as needed.At 140/80 the systolic is higher than I like. 12/30/2024 Dupuytren's contracture of left hand (ICD-10 - [...] MG 1 tablet Orally Once a day Pending Test Test Name Order Date Stress Test 12/30/2024 ECG 12 lead EKG 12/30/2024 Next Appt Details Follow Up: 3 Months, Reason: OV, telehealth following stress test Provider Name:Jus Rapp , 08/01/2025 03:15:00 PM, [address] [place] [address] [address], [place], [phone], Provider Name:Jus Rapp , 12/31/2025 03:00:00 PM, [address] [place] [address] DR, [address], [address], Progress Notes * David MCKENZIEDOB:1965 ([age] yo M)Acc No.[id number]:12/30/2024 Progress Notes Patient: David KIRKPATRICK Provider: Brendon Rapp MD :1965 A ge:59 Y S ex:Male Date:12/30/2024 Address:[address] [place], [place] [id number] Subjective: * Chief Complaints: * A nnual Exam * HPI: D epression Screening: H maritza returns to the office for medical management and control of blood pressure. A new complaint was pain in the right forearm with lifting the right arm. This was located at a muscle detachment on the medial elbow. It is likely tendinitis and we recommended heat rest and ibuprofen. He has been complaining of some left precordial dull chest pain with exertion recently. He has been taking aspirin of concern for cardiac disease. We have scheduled him for a stress test as soon as possible. He will continue to take 81 mg of aspirin daily. If he has prolonged chest pain he will go to the emergency room. PHQ-9 L ittle interest or pleasure in doing things?Not at all F eeling down, depressed, or hopeless N ot at all T rouble falling or staying asleep, or sleeping too much N ot at all F eeling tired or having little energy N ot at all P oor appetite or overeating N ot at all F eeling bad about yourself or that you are a failure, or have let yourself or your family down N ot at all T rouble concentrating on things, such as reading the newspaper or watching television N ot at all M oving or speaking so slowly that other people could have noticed; or the opposite, being so fidgety or restless that you have been moving around a lot more than usual N ot at all T houghts that you would be better off or of hurting yourself in some way N ot at all T otal Score 0 C OVID-19 Screening: Questions H ave you had any new onset fever, chills, cough, congestion, sore throat, shortness of breath, muscle aches? N o S SILVIA Questions: SDOH Questions I n the past year have you been worried about losing your housing? N o I n the past year have you or any family members you live with been unable to get any of the following when it was really needed? Check all that apply: N one * ROS: G eneral/Constitutional: pain R ight elbow and left mid chest. C hills d enies. F atigue a dmits. F ever d enies. E NT: Decreased hearing d enies. R espiratory: Cough d enies. C ardiovascular: Chest pain with exertion R ecently lasting a minute. D yspnea on exertion d enies. S hortness of breath d enies. G astrointestinal: Constipation d enies. D ecreased appetite d enies.?Diarrhea d enies. H eartburn d enies. N ausea d enies. R ectal bleeding?denies. V omiting d enies. H ematology: bruising d enies. p etechiae d enies. S wollen glands n one have been noted. G enitourinary: Frequent urination d enies. M usculoskeletal: Muscle aches d enies. P ainful joints M edial Right elbow. S ciatica d enies. W eakness d [...] cancer, lung cancer, hypertension, hyperlipidemia, diagnosed with Cancer, Hyperlipidemia. M other: 52 yrs, breast cancer, diagnosed with Cancer. S iblings: . 2 brother(s) , 2 sister(s) . 1 son(s) , 1 daughter(s) - healthy. . A sister age 53 of cirrhosis of the liver. His father had a history of colon cancer. * Social History: T obacco Use: T obacco Control (Standard) T obacco use: F ormer smoker H ow long has it been since you last smoked??Greater than 10 years A dditional Findings: Tobacco non-user E x-cigarette smoker D rugs/Alcohol: D rugs H ave you used drugs other than those for medical reasons in the past 12 months? N o D rug/Alcohol: A JAXSON-C (Standard) D id you have a drink containing alcohol in the past year? Y es H ow often did you have six or more drinks on one occasion in the past year? 2 to 4 times a month (2 points) H ow many drinks did you have on a typical day when you were drinking in the past year? 1 or 2 drinks (0 point) H ow often did you have a drink containing alcohol in the past year? N ever (0 point) P oints 2 I nterpretation N egative Jaylan salas was born in [place], [place]. He is to Zenobia and they have several children. He is no longer working at [employer] in [employer]. * Medications: T akingRemeron 15 MG Tablet [...] H t: 72, Wt: 214, BMI:29.02, BP: 140/80, HR: 63, Temp: 98.2, Wt-k.07. * P ast Orders: Lab:URINE DIP STICK * Collection Date 12/30/2024 09/25/2023 06/01/2018 Order Date 12/30/2024 09/25/2023 06/01/2018 SG 1.010 (Ref Range: 1.005 - 1.025) 1.030 (Ref Range: 1.005 - 1.025) 1.025 pH 5.0 (Ref Range: 5.0 - 9.0) 5.0 (Ref Range: 5.0 - 9.0) 5 POONAM Negative (Ref Range: Negative -) Negative (Ref Range: Negative -) neg NIT Negative (Ref Range: Negative -) Negative (Ref Range: Negative -) neg PRO 15 (Ref Range: Negative - Trace) 15 (Ref Range: Negative - Trace) neg GLU Negative (Ref Range: Negative -) Negative (Ref Range: Negative -) normal KET Negative (Ref Range: Negative -) 5 (Ref Range: Negative -) neg UBG 0.2 (Ref Range: 0.1 - 1.8) 0.2 (Ref Range: 0.1 - 1.8) normal LILLIAN Negative (Ref Range: 0.2 - 1.3) Negative (Ref Range: 0.2 - 1.3) neg BLD 5-10 (Ref Range: Negative -) Positive (Ref Range: Negative -) neg Menstrating NR NR n/a * Examination: G eneral Examination: GENERAL APPEARANCE: [...] or edema, Normal range of motion right elbow, pain to palpation of epicondyle. PERIPHERAL PULSES: n ormal. NEUROLOGIC: a lert and oriented, cranial nerves 2-12 grossly intact, deep tendon reflexes 2+ symmetrical, motor strength normal upper and lower extremities, sensory exam intact. PSYCH: a lert, oriented. Assessment: * Assessment: 1. P recordial pain - R07.2 (Primary) N otes :I have ordered an EKG and a stress test to evaluate the new onset of chest pain. She will take 81 mg 2 . R ight elbow tendinitis - M77.8 N otes :He will use heat rest and ibuprofen. If it does not resolve he will be referred to orthopedics. 3 . R ight knee pain - M25.561 N otes :He reports that the right knee pain has resolved. He has an ccasional twinge but is walking without difficulty. 4 . D epression - F32.9 N otes :He is not feeling depressed and his anxiety is much improved. He says he feels under much less stress now that he is no longer working at that company. 5 . H yperlipidemia - E78.5 N otes :His cholesterol has been controlled in the past. A fasting lipid profile will be done prior to his next visit. No channge in his medications was needed. 6 . F ormer smoker - Z87.891 N otes :He is highly motivated not to smoke. He has a plan for prevention of relapse in times of worsening depression or illness. 7 . O verweight - E66.3 N otes :He has lost 3 pounds. His body mass index is 29. We discussed a weight reduction strategy in detail today. 8 . E ssential hypertension - I10 N otes :His blood pressure is controlled and no change in his regimen as needed.At 140/80 the systolic is higher than I like. 9 . D upuytren's contracture of left hand - M72.0 N otes :There has been no change in this problem and it bothers him very little. Plan: * Treatment: 2. O thers Continue Remeron Tablet, 15 MG, 1 tablet before bedtime in the evening, Orally, Once a day; C ontinue Omeprazole Capsule Delayed Release, 20 MG, 1 capsule 30 minutes before morning meal, Orally, Once a day; C ontinue Aspirin 81 Tablet Chewable, 81 MG, 1 tablet, Orally, Once a day. ? * Labs: * L ab: URINE DIP STICK (Collection Date & Time - 12/30/2024) Value Reference Range S G 1.010 1.005 - 1.025 * p H 5.0 5.0 - 9.0 * L EU Negative Negative - * N IT Negative Negative - * P RO 15 Negative - Trace * G SHAW Negative Negative - * K ET Negative Negative - * U BG 0.2 0.1 - 1.8 * B IL Negative 0.2 - 1.3 * B LD 5-10 Negative - * Procedure Codes: 8 1002 URINE-NO MICRO * Preventive Medicine: Counseling: C are goal [...] of tobacco use and urged to quit. 0 12/30/2024 * Follow Up: 3 Months (Reason: OV, telehealth following stress test) * Images: * Sign off status: Completed true * Provider: Brendon Rapp MD Date: 0 12/30/2024 Generated for Garret maurer/Rachna/eTransmitting on: 09/23/2024 07:54 AM EST History and Physical Notes * HPI (History of Present Illness) Category Sub-Category Detail Notes Depression Screening PHQ-9 Little inte rest or pleasure in doing things: Not at all Feeling down, depressed, or hopeless: No t at all Trouble falling or staying asleep, or sl eeping too much: Not at all Feeling tired or having little energy: N ot at all Poor appetite or overeating: Not at all Feeling bad about yourself o r that you are a failure, or have let yourself or your family down: Not at all Trouble concentrating on thi ngs, such as reading the newspaper or watching television: Not at all Moving or speaking so slowly that other people could have noticed; or the opposite, being so fidgety or restless that you have been moving around a lot more than usual: Not at all Thoughts that you would be b shirley off or of hurting yourself in some way: Not at all Total Score: 0 COVID-19 Screening Questions Have you had any new onset fever, chills, cough, congestion, sore throat, shortness of breath, muscle aches?: No SDOH Questions SDOH Questions In the past year have you been worried about losing your housing?: No In the past year have you or any family members you live with been unable to get any of the following when it was really needed? Check all that apply:: None Examination Category Sub-Category Detail Notes General Examination [...] or edema, Normal range of motion right elbow, pain to palpation of epicondyle LYMPH NODES: no enlarged lymph no shine,spleen normal RECTAL EXAM: not examined PSYCH: alert, oriented ORAL CAVITY: normal, unremarkable
--- OUTSIDE RECORDS SUMMARY | 2025-04-01 10:00 | XMS_ITS ---
Author Organization Jus Rapp III, MD Address [address] [place] [address] [place] [address] Care Team Providers Care District Manager In Training Name Role Phone Dr. Jus Rapp III Primary Care Provider Allergies Allergen (clinical drug ingredient) Drug/Non Drug Allergy documented on EMR Reaction Allergy Type Onset Date Status No Known Drug Allergy Unknown Drug Allergy Active Reason For Referral Reason Evaluate and Treat Right Arm Pain Diagnosis 1 Right arm pain (M79. 601) Referral Organization Jus Rapp III, MD Referring Provider First Name Jus Referring Provider Last Name Dionte Referring Provider Speciality Internal M edicine Referred Provider Ramiro Meyers, [facility] ([place]) Referred Provider Specialty Orthopedic S urgery General Notes Belén Urbina 04/07/2025 10:50:53 AM > referral and progress note faxed. Patient was made aware, Belén Urbina 04/18/2025 02:31:32 PM > Contacted patient regarding referral. Message was left for patient. Referral Priority Routine REASON FOR VISIT Depression, Right knee pain, Hyperlipidemia, Dupuytren's contracture, Hypertension, Benign prostatic hypertrophy Medications Medication SIG (Take, Route, Fr equency, Duration) Notes Start Date End Date Status Remeron 15 MG 1 tablet before bedt ольга in the evening Orally Once a day Active Mirtazapine 15 MG 1/2 tablet at bedtim e Orally Once a day for 90 days 04/01/2025 Active Aspirin 81 81 MG 1 tablet Orally Once a day Active Omeprazole 20 MG 1 capsule 30 minutes before morning meal Orally Once a day A ctive Social History Tobacco Use: Social History Observation Description Date Details (start date - stop date) Former Smoker NA - NA Sex Assigned At : Social History Observation Description Sex Assigned At Male Tobacco Control (Standard) Question Answer Notes Tobacco use: Former smoker How long has it been since you last smoked? Mercedes ter than 10 years Additional Findings: Tobacco non-user Ex-cigaret te smoker Vital Signs Temperature 98.6 degrees Fahrenheit 04/01/20 25 Blood pressure systolic 130 mm Hg 04/01/20 25 Blood pressure diastolic 80 mm Hg 025 Heart Rate 60 /min 04/01/2025 Height 72 in 04/01/2025 Weight 212 lbs 04/01/2025 BMI 28.75 kg/m2 04/01/2025 Encounters Encounter Location Date Provider Diagnosis Jus Rapp III, MD [address] [place] [address] [place] [address] 04/01/2025 Jus Rapp Hyperlipidemia E78.5 ; Essential hypertension I10 ; Overweight E66.3 ; BPH (benign prostatic hyperplasia) N40.0 ; Right knee pain M25.561 and Former smoker Z87.891 Assessments Encounter Date Diagnosis (ICD Code) Assessment Notes Treat ment Notes Treatment Clinical Notes 04/01/2025 Hyperlipidemia (ICD-10 - E78.5) No change in his therapy was necessary. Comprehensive blood work with a fasting lipid profile has been ordered. 04/01/2025 Essential hypertension (ICD-10 - I10) His blood pressure is currently stable. Her medication was continued. 04/01/2025 Overweight (ICD-10 - E66.3) We have discussed his diet and nutrition. We formulated a plan to lose weight gradually at one half of a pound per week until the body mass index is in the normal range. 04/01/2025 BPH (benign prostati c hyperplasia) (ICD-10 - N40.0) We have discussed lifestyle modification she could make to reduce nocturia. He currently rises from sleep once or twice a night. 04/01/2025 Right knee pain (ICD-10 - M25.561) He reports that the right knee pain has resolved. He has an ccasional twinge but is walking without difficulty. 04/01/2025 Former smoker (ICD-1 0 - Z87.891) He is highly motivated not to smoke. He has a plan for prevention of relapse in times of worsening depression or illness. Plan Of Treatment Medication Medication Name Sig Start Date Stop Date Notes Remeron 15 MG 1 tablet before bedt ольга in the evening Orally Once a day Mirtazapine 15 MG 1/2 tablet at bedtim e Orally Once a day for 90 days 04/01/2025 Aspirin 81 81 MG 1 tablet Orally Once a day Omeprazole 20 MG 1 capsule 30 minutes before morning meal Orally Once a day Pending Test Test Name Order Date PROFILE, FASTING (COMPREHENSIVE METABOLI C) 04/01/2025 PSA, TOTAL 04/01/2025 CBC w DIFF 04/01/2025 Lipid Panel 04/01/2025 Referrals Referral Date Details 04/01/2025 04/01/2025, Evaluate and Treat Right Arm Pain, [facility] Appt Details Follow Up: 4 Months, Reason: OV Provider Name:Jus Rapp , 08/01/2025 03:15:00 PM, [address] [place] [address] [address], [place], [address], Provider Name:Jus Rapp , 12/31/2025 03:00:00 PM, [address] [place] [address] [address], [place], [address], Progress Notes * David MCKENZIEDOB:1965 ([age] yo M)Acc No.[id number]:04/01/2025 Progress Notes Patient: David KIRKPATRICK Provider: Brendon Rapp MD :1965 A ge:60 Y S ex:Male Date:04/01/2025 Address:[address] [place] [id number] Subjective: * Chief Complaints: * D epressionRight knee painHyperlipidemiaDupuytren's contractureHypertensionBenign prostatic hypertrophy * HPI: C OVID-19 Screening: Jaylan salas returns for medical management. He recently had a cardiac stress test that was negative for ischemia. HHe had a few PACs and PVCs. He reports nocturia once a night on average. The pain in his right knee is very minor at this timee. His blood pressure is stable. His sciatica is unchanged and mild. It radiates down the right leg only at times.He has been compliant with his medications. His depression is in remission. Questions H ave you had any new onset fever, chills, cough, congestion, sore throat, shortness of breath, muscle aches? N o * ROS: G eneral/Constitutional: pain C hronic low back pain, otherwise only normal aches and pains. C [...] enies.?Headache d enies. L ow back pain t hat is chronic. P sychiatric: Depressed mood d enies. * [...] dditional Findings: Tobacco non-user E x-cigarette smoker Jaylan salas was born in [place], [place]. He is to [place] and they have several children. He is no longer working at [employer] in [place]. * Medications: T akingRemeron 15 MG Tablet [...] Objective: * Vitals: H t: 72, Wt: 212, BMI:28.75, BP: 130/80, HR: 60, Temp: 98.6, Wt-k.16. * P ast Orders: Lab:URINE DIP STICK [...] developed, in no acute distress, calm and relaxed: overweight: man. HEAD: a traumatic, normocephalic. EYES: e [...] sounds normal, no ascites, no organomegaly, no mass: overweight. RECTAL EXAM: n ot examined. MUSCULOSKELETAL: e xtremities unremarkable, no clubbing, cyanosis or edema, Bilaterall Dupuytren's contractures of the hands. PERIPHERAL PULSES: n ormal. NEUROLOGIC: a lert and oriented, cranial nerves 2-12 grossly intact, deep tendon reflexes 2+ symmetrical, motor strength normal upper and lower extremities, sensory exam intact. PSYCH: a lert, oriented. Assessment: * Assessment: 1. E ssential hypertension - I10 (Primary) N otes :His blood pressure is currently stable. Her medication was continued. 2 . H yperlipidemia - E78.5 N otes :No change in his therapy was necessary. Comprehensive blood work with a fasting lipid profile has been ordered. 3 . O verweight - E66.3 N otes :We have discussed his diet and nutrition. We formulated a plan to lose weight gradually at one half of a pound per week until the body mass index is in the normal range. 4 . B PH (benign prostatic hyperplasia) - N40.0 N otes :We have discussed lifestyle modification she could make to reduce nocturia. He currently rises from sleep once or twice a night. 5 . R ight knee pain - M25.561 N otes :He reports that the right knee pain has resolved. He has an ccasional twinge but is walking without difficulty. 6 . F ormer smoker - Z87.891 N otes :He is highly motivated not to smoke. He has a plan for prevention of relapse in times of worsening depression or illness. Plan: * Treatment: 2. H yperlipidemia Continue Remeron Tablet, 15 MG, 1 tablet before bedtime in the evening, Orally, Once a day. ? L AB: PROFILE, FASTING (COMPREHENSIVE METABOLIC) L AB: PSA, TOTAL L AB: CBC w DIFF L AB: Lipid Panel 3. O verweight L AB: PROFILE, FASTING (COMPREHENSIVE METABOLIC) L AB: PSA, TOTAL L AB: CBC w DIFF L AB: Lipid Panel 4. B PH (benign prostatic hyperplasia) L AB: PROFILE, FASTING (COMPREHENSIVE METABOLIC) L AB: PSA, TOTAL L AB: CBC w DIFF L AB: Lipid Panel 5. O thers Continue Omeprazole Capsule Delayed Release, 20 MG, 1 capsule 30 minutes before morning meal, Orally, Once a day; C ontinue Aspirin 81 Tablet Chewable, 81 MG, 1 tablet, Orally, Once a day; S tart Mirtazapine Tablet, 15 MG, 1/2 tablet at bedtime, Orally, Once a day, 90 days, 45, Refills 3.? Referral To:[facility] Reason:Evaluate and Treat Right Arm Pain * Procedure Codes: * Preventive Medicine: Counseling: [...] tobacco use and urged to quit. 0 04/01/2025 * Follow Up: 4 Months (Reason: OV) * Images: * Sign off status: Completed true * Provider: Brendon Rapp MD Date: 0 04/01/2025 Generated for Printi ng/Joceg/eTransmitting on: 1 09/23/2024 07:54 AM EST History and Physical Notes * HPI (History of Present Illness) Category Sub-Category Detail Notes COVID-19 Screening Questions Have you had any new onset fever, chills, cough, congestion, sore throat, shortness of breath, muscle aches?: No Examination Category Sub-Category Detail Notes General Examination GENERAL APPEARANCE: pleasant , well nourished, well developed, in no acute distress, calm and relaxed: overweight: man HEAD: atraumatic, normocep halic EYES: eomi, perrla, anicte marcos, conjugate EARS: normal NOSE: septum intact NECK/THYROID: no jugular venous di stention, no carotid bruit, thyroid normal HEART: no clicks, gallops, murmurs, or rubs, regular rhythm, S1, S2 normal, no s3, or vascular bruits LUNGS: clear to auscultatio n ABDOMEN: bowel sounds normal, no ascites, no organomegaly, no mass: overweight NEUROLOGIC: alert and oriented, cranial nerves 2-12 grossly intact, deep tendon reflexes 2+ symmetrical, motor strength normal upper and lower extremities, sensory exam intact SKIN: no suspicious lesion s, anicteric PERIPHERAL PULSES: normal BREASTS: no masses palpable b ilaterally MUSCULOSKELETAL: extremities unremark able, no clubbing, cyanosis or edema, Bilaterall Dupuytren's contractures of the hands LYMPH NODES: no enlarged lymph no shine,spleen normal RECTAL EXAM: not examined PSYCH: alert, oriented ORAL CAVITY: normal, unremarkable Consultation Request Notes Referral Date Referring Provider Referred Provider Not temo 04/01/2025 Jus Rapp Ort [facility] ([place]) Evaluate and Treat Right Arm Pain
--- OUTSIDE RECORDS SUMMARY | 2025-07-23 07:54 | XMS_ITS | Patient Health Record ---
Author Organization Jus Rapp III, MD Address [address] [place] [address] [address] [place] [address] Care Team Providers Care Dice Maker Name Role Phone Dr. Jus Rapp III Primary Care Provider [phone] Allergies Allergen (clinical drug ingredient) Drug/Non Drug [...] 0.2 - 1.3 BLD 5-10 Negative - Reason For Referral Reason Evaluate and Treat Right Arm Pain Diagnosis 1 Right arm pain (M79. 601) Referral Organization Jus Rapp III, MD Referring Provider First Name Jus Referring Provider Last Name Dionte Referring Provider Speciality Internal M edicine Referred Provider [place], [facility] ([place]) Referred Provider Specialty Orthopedic S urgery General Notes 04/07/2025 10:50:53 AM > referral and progress note faxed. Patient was made aware, 04/18/2025 02:31:32 PM > Contacted patient regarding referral. Message was left for patient. Referral Priority Routine Medications Medication SIG (Take, Route, Fr equency, [...] meal Orally Once a day A ctive Immunizations Vaccine Route Administration Date Status Comme nts Influenza Unknown 05/16/2014 Administered Tetanus and Diphtheria Toxoids Adsorbed IM Intramuscular 12/22/2015 Administered Influenza no Preserv 3 and > Unknown 05/18/2019 Administered COVID PFIZER Unknown 01/26/2021 Administered SHINGRIX Unknown 01/20/2023 Administered Influenza, quad Unknown 05/18/2019 Administered Influenza, quad Unknown 05/19/2022 Administered COVID 19 Fern Unknown 08/27/2021 Administered COVID 19 Fern Unknown 11/06/2020 Administered SHINGRIX Unknown 06/02/2023 Administered COVID Pfizer Bivalent Unknown 06/17/2022 Administered Influenza no Preserv 3 and > Unknown 04/22/2021 Administered COVID-19 Moderna SPIKEVAX Unknown 04/21/2023 Administer ed Flu-ccIIv3, p-free Unknown 04/15/2024 Administered COVID-19 Moderna SPIKEVAX Unknown 04/21/2023 Administer ed Comirnaty Pfizer COVID-19 12+ Unknown 05/17/2024 Administered Social History Tobacco Use: Social History Observation [...] Problem Status W/U Status Risk Notes Problem 3426453 Former smoker (Z87.891) Active confirmed He is highly motivated not to smoke. He has a plan for prevention of relapse in times of worsening depression or illness. Problem 71883531 Hyperlipidemia (E78.5) Active confirmed No change in his therapy was necessary. Comprehensive blood work with a fasting lipid profile has been ordered. Problem Overweight (312969642) Overweight (E66.3) Active confirmed We have discussed his diet and nutrition. We formulated a plan to lose weight gradually at one half of a pound per week until the body mass index is in the normal range. Problem 14434313 Depression (F32.9) Active confirmed He is not feeling depressed and his anxiety is much improved. He says he feels under much less stress now that he is no longer working at that company. Problem 25338569 Precordial pain (R07.2) Active confirmed I have ordered an EKG and a stress test to evaluate the new onset of chest pain. She will take 81 mg Problem Benign prostatic hyperplasia (704125396) BPH (benign prostatic hyperplasia) (N40.0) Active confirmed We have discussed lifestyle modification she could make to reduce nocturia. He currently rises from sleep once or twice a night. Problem 43366036 Essential hypertension (I10) Active confirmed His blood pressure is currently stable. Her medication was continued. Problem 28581389 Right knee pain (M25.561) Active confirmed He reports that the right knee pain has resolved. He has an ccasional twinge but is walking without difficulty. Problem 11457282103708233 Dupuytren's contracture of left hand (M72.0) Active confirmed There has been no change in this problem and it bothers him very little. Problem 5731793 Subareolar gynecomastia in male (N62) Active confirmed I will continue to follow the complaint of discomfort in the left breast, but his examination has returned to normal. Problem [id number] Right elbow tendinitis (M77.8) Active confirmed He will use heat rest and ibuprofen. If it does not resolve he will be referred to orthopedics. Vital Signs Heart Rate 60 /min 04/01/2025 Temperature 98.6 degrees Fahrenheit 04/01/2025 Blood pressure diastolic 80 mm Hg 04/01/2025 Height 72 in 04/01/2025 Blood pressure systolic 130 mm Hg 04/01/2025 Weight 212 lbs 04/01/2025 BMI 28.75 kg/m2 04/01/2025 Encounters Encounter Location Date Provider Diagnosis Jus Rapp III, MD [address] [place] [address] [address] [place], [place] [address] 12/30/2024 Jus Rapp Precordial pain R07. 2 ; Right elbow tendinitis M77.8 ; Right knee pain M25.561 ; Depression F32.9 ; Hyperlipidemia E78.5 ; Former smoker Z87.891 ; Overweight E66.3 ; Essential hypertension I10 and Dupuytren's contracture of left hand M72.0 Jus Rapp III, MD [address] [place] [address] [address] [place], [place] [address] 04/01/2025 Jus Rapp Hyperlipidemia E78.5 ; Essential [...] resolve he will be referred to orthopedics. 04/01/2025 Hyperlipidemia (ICD-10 - E78.5) No change in his therapy was necessary. Comprehensive blood work with a fasting lipid profile has been ordered. 04/01/2025 Essential hypertension (ICD-10 - I10) His blood pressure is currently stable. Her medication was continued. 12/30/2024 Right knee pain (ICD-10 - M25.561) He reports that the right knee pain has resolved. He has an ccasional twinge but is walking without difficulty. 04/01/2025 Overweight (ICD-10 - E66.3) We have discussed his diet and nutrition. We formulated a plan to lose weight gradually at one half of a pound per week until the body mass index is in the normal range. 12/30/2024 Depression (ICD-10 - F32.9) He is not feeling depressed and his anxiety is much improved. He says he feels under much less stress now that he is no longer working at that company. 04/01/2025 BPH (benign prostati c hyperplasia) (ICD-10 - N40.0) We have discussed lifestyle modification she could make to reduce nocturia. He currently rises from sleep once or twice a night. 12/30/2024 Hyperlipidemia (ICD-10 - E78.5) His cholesterol has been controlled in the past. A fasting lipid profile will be done prior to his next visit. No channge in his medications was needed. 04/01/2025 Right knee pain (ICD-10 - M25.561) He reports that the right knee pain has resolved. He has an ccasional twinge but is walking without difficulty. 12/30/2024 Former smoker (ICD-1 0 - Z87.891) He is highly motivated not to smoke. He has a plan for prevention of relapse in times of worsening depression or illness. 04/01/2025 Former smoker (ICD-1 0 - Z87.891) [...] bothers him very little. Plan Of Treatment Pending Test Test Name Order Date PROFILE, FASTING (COMPREHENSIVE METABOLI C) 09/25/2020 PROFILE, FASTING (COMPREHENSIVE METABOLI C) 11/16/2021 PROFILE, FASTING (COMPREHENSIVE METABOLI C) 05/28/2021 PROFILE, FASTING (COMPREHENSIVE METABOLI C) 05/29/2020 PROFILE, FASTING (COMPREHENSIVE METABOLI C) 10/08/2018 PROFILE, FASTING (COMPREHENSIVE METABOLI C) 01/08/2021 PROFILE, FASTING (COMPREHENSIVE METABOLI C) 09/25/2023 PROFILE, FASTING (COMPREHENSIVE METABOLI C) 04/01/2025 PROFILE, FASTING (COMPREHENSIVE METABOLI C) 05/17/2022 LIPID PANEL 09/25/2020 LIPID PANEL 11/16/2021 LIPID PANEL 05/29/2020 LIPID PANEL 10/08/2018 LIPID PANEL 01/08/2021 LIPID PANEL 09/25/2023 PSA, TOTAL 09/25/2023 PSA, TOTAL 05/17/2022 PSA, TOTAL 11/16/2021 PSA, TOTAL 04/01/2025 PSA, TOTAL 10/08/2018 CBC w DIFF 01/08/2021 CBC w DIFF 04/01/2025 CBC w DIFF 10/08/2018 CBC w DIFF 09/25/2023 CBC w DIFF 05/17/2022 CBC w DIFF 05/28/2021 CBC w DIFF 09/25/2020 CBC w DIFF 11/16/2021 CBC w DIFF 05/29/2020 URINALYSIS (UA) 04/07/2017 ESTRADIOL (E2), RAPID 12/13/2017 XR CHEST 2 VIEW PA & LAT 07/19/2021 XR LUMBAR SPINE 4+ VIEWS 02/06/2019 US ABD 09/28/2020 Stress Test 12/30/2024 Stress Test 07/19/2021 Lipid Panel 04/01/2025 Lipid Panel 05/17/2022 Lipid Panel 05/28/2021 ECG 12 lead EKG 12/30/2024 Next Appt Details Provider Name:Jus Rapp , 08/01/2025 03:15:00 PM, [address] [place] [address] [address], [place], [address], Provider Name:Jus Rapp , 12/31/2025 03:00:00 PM, [address] [place] [address] [address], [place], [address], Insurance Providers Payer Name Payer Address Payer Phone Subscriber Number Group Number Insured Name Patient Relationship to Insured Coverage Start Date Coverage End Date [facility] [employer] [facility] [address] [place], [place] [id number] David Funk Self - patient is the insured Medical (General) History Medical History History ICD Code right knee pain borderline hypertension depression back pain/DJD gynecomastia, left breast, November 2017 Diet controlled hypertension Surgical History Surgery Date(Month/Year) No history colonoscopy 2002 Hospitalization History Reason Date(Month/Year) No history
--- OUTSIDE RECORDS SUMMARY | 2025-07-23 07:55 | XMS_ITS | Patient Health Record ---
Author Organization [facility] Address [address] [place] [address] Care Team Providers Care Brisket Puller Name Role Phone Jus Rapp MD Primary Care Provider UnavailJamal Page Jr Unavailable [phone] Allergies No Known Allergies Reason For Referral No Information Medications Medication SIG (Take, Route, Frequency, Duration) Notes Start Date End Date Status Probiotic Active Aspirin 81 Active Magnesium Active Remeron 15mg 1 tablet at bedtime Orally Once a day Active Omeprazole otc Active MiraLax (colon prep) 8.3 ounce ((238) grams mixed with Gatorade or Crystal Light orally begin at 5:00 p.m. the day before the procedure; Duration: 1 day 11/09/2023 Active Multivitamin Adults 50+ Active Immunizations Vaccine Route Administration Date Status Comme nts Influenza Unknown 04/30/2018 Administered Social History Tobacco Use: Social History Observation Description Date Details (start date - stop date) Never Smoker NA - NA Social History Drugs/Alcohol: Social Info Question Answer Notes Alcohol Screen Did you have a drink containing alcohol in the past year? Yes How often did you have a drink containing alcohol in the past year? 2 to 4 times a month (2 points) How many drinks did you have on a typical day when you were drinking in the past year? 1 or 2 drinks (0 point) How often did you have 6 or more drinks on one occasion in the past year? Never (0 point) Points 2 Interpretation Negative Tobacco Use: Social Info Question Answer Notes Tobacco Use/Smoking Patient is a nonsmoker Additional Details Category Social Info Options Details Miscellaneous: Marital status: Occupation: chief engineering division/ manage r Problems Problem Type SNOMED Code ICD Code Onset Dates Problem Status W/U Status Risk Notes Problem Colon cancer screening (045391024) Colon cancer screening (Z12.11) Active confirmed Problem Pre-procedure evaluation check (494538977) Encounter for other preprocedural examination (Z01.818) Active confirmed Problem Benign neoplasm of stomach (52154783) Gastric polyps (K31.7) Active confirmed Problem Gastroesophageal reflux disease (284962556) Gastroesophageal reflux disease, unspecified whether esophagitis present (K21.9) Active confirmed Problem Gastroesophageal reflux disease (disorder) (467347778) Chronic GERD (K21.9) Active confirmed Plan Of Treatment Future Test Test Name Order Date COLONOSCOPY 09/27/2012 COLONOSCOPY 05/31/2018 UPPER GI ENDOSCOPY 11/09/2023 COLONOSCOPY 11/09/2023 Insurance Providers Payer Name Payer Address Payer Phone Subscriber Number Group Number Insured Name Patient Relationship to Insured Coverage Start Date Coverage End Date [facility] [address] [place] [address] [id number] ANETA MCKENZIE Self - patient is the insured Medical (General) History Medical History History ICD Code insomnia depression Gastroesophageal reflux disease Colon polyps and family hist ory of colon cancer, last colonoscopy 08/2018, tubular adenoma, five-year followup Surgical History Surgery Date(Month/Year) bilateral hernia 05/2012
[2025-07-23 09:59] LABS: MANUAL DIFF FLAG NO
[2025-07-23 10:24] LABS: Hematocrit 47.8 % (42.0-52.0); Hemoglobin 16.3 g/dl (14.0-18.0); Imm Gran Abs Auto 0.03 X10*3/uL (0.00-0.03); Imm Gran Pct Auto 0.5 % (0.0-0.4); Lymphocytes Absolute Auto 1.8 X10*3/uL (1.2-4.9); Mean Corpuscular HGB Conc 34.1 g/dl (31.0-36.0); Mean Corpuscular Hemoglobin 30.5 pg (27.0-33.0); Mean Corpuscular Volume 89.3 fL (80.0-98.0); NRBC Abs Auto 0.000 X10*3/uL (0.0-0.012); NRBC Pct Auto 0.0 /100WBC (0.0-0.2); Platelet Count 313 X10*3/uL (160-400); Red Blood Count 5.35 X10*6/uL (4.60-5.80); White Blood Count 6.1 X10*3/uL (4.8-10.8)
[2025-07-23 10:37] LABS: Alanine Aminotransferase 30 U/L (0-40); Albumin Level 4.3 g/dL (3.5-5.0); Alkaline Phosphatase 68 U/L (39-117); Anion Gap 12 (12-20); Aspartate Amino Transferase 24 U/L (5-37); Blood Urea Nitrogen 20 mg/dL (9-16); Calcium 9.7 mg/dL (8.4-10.2); Carbon Dioxide 24 mmol/L (22-29); Chloride 110 mmol/L (96-108); Cholesterol 220 mg/dL (<200); Estimated Glomerular Filt Rate > 60; HDL Cholesterol 55 mg/dL (>40); Potassium 4.2 mmol/L (3.3-5.1); Sodium 142 mmol/L (135-145); Total Protein 6.6 g/dL (6.5-8.0); Triglycerides 125 mg/dL (<150)
[2025-07-23 10:58] LABS: Prostate Specific Antigen 0.30 ng/mL (<0.05-4.0)
== END 2025-07-23 07:51 | disposition home or self-care (01) ==
LOC: HO.HMGCLDS 07:50
PROVIDERS: PCP Internal Medicine Medical Oncology; Visit Provider Internal Medicine Medical Oncology
DX: I10 Essential (primary) hypertension (principal); E78.5 Hyperlipidemia, unspecified; N40.0 Benign prostatic hyperplasia without lower urinary tract symptoms; E66.3 Overweight; Z12.5 Encounter for screening for malignant neoplasm of prostate
CPT/HCPCS: 36415; 80053; 80061; 84153; 85025